=== PATIENT | female | born 1950 | race Caucasian/White ===

== ENCOUNTER 2022-03-06 11:25 | Day surgery (SDC) | payer BC, SELFPAY ==
[2022-03-06] VITALS (10 sets, daily range): BP systolic 134–174; BP diastolic 71–93; PULSE 80–97; RESP 18–22; TEMP 36.2–36.6; O2SAT 92–98; BMI 30.2
[2022-03-06] MEDS: SODIUM CHLORIDE 0.9 % (FLUSH) 10 ML SYRINGE IVF (12:07)
[2022-03-06] MEDS: LACTATED RINGERS 1000 ML 1,000 ML 100 ML IV ×2 (12:07→14:34)
[2022-03-06 12:11] LABS: Glucose, Point-of-Care* 165 mg/dl (60-115)
--- NOTE | 2022-03-06 12:36 | SUR.PREOP ---
pt daughter states she will be staying with pt dallin.
--- NOTE | 2022-03-06 12:37 | SUR.PREOP ---
TIME?OUT:?1234 PT/Constantine MORALEZ RN/Senthil CORTEZ MDA?VERIFICATION?OF?SURGICAL?SITE,?PROCEDURE,?AND?CONSENT OBTAINED?PRIOR?TO?INVASIVE?PROCEDURE.
[2022-03-06] MEDS: MIDAZOLAM HCL 1 MG/ML inj IVP (12:43)
[2022-03-06] MEDS: fentaNYL 100 MCG/2 ML inj IVP (12:43)
--- NOTE | 2022-03-06 13:14 | CRLHL7_ITS ---
For Patients: As a result of the Century Cures Act, medical imaging exams and procedure reports are released immediately into your electronic medical record. You may view this report before your referring provider. If you have questions, please contact your health care provider. INDICATION: Intra op TECHNIQUE: Intraoperative C-arm fluoroscopy. IMPRESSION: Intraoperative C-arm fluoroscopy was provided. Fluoroscopy time 107.3 seconds. 3 images were captured. Dictated by Brenton Shah MD @ 03/06/2022 4:11:49 PM (Electronically Signed)
--- NOTE | 2022-03-06 13:15 | P.NB_ITS ---
Nerve Block Nerve Block Time Seen by Provider: 12:30 Date Seen: 03/06/22 Type of block requested by surgeon for post-operative analgesia: axillary Side: left Time out performed: Yes Verification of patient name: Yes Verification of date of : Yes Site marking: site marked Name of person performing procedure: Mauri Continuous monitoring Was continuous monitoring of O2 sat, B/P, ekg monitor tech, recorded every 15 minutes?: Yes Procedure Checklist: sterile prep, needles and gloves Ultrasound guided. Images saved: Yes Medications given in 5ml increments after negative aspiration: Ropivicaine %: 0.5 mL: 30 Needle gauge: 22 Patient tolerated procedure well: Yes Additional comments: Needle noted adjacent to nerve
[2022-03-06] MEDS: CEFAZOLIN 2 GM INJ IVP (14:45)
--- NOTE | 2022-03-06 15:35 | P.ORPRC_ITS ---
Procedure Note Date of procedure: 03/06/22 Procedure: SURGEON: Yann Wills MD MICROFICHE DUPLICATOR: RON Redding PREOPERATIVE DIAGNOSIS: Angulated and displaced 2 part extra-articular left upper extremity distal radius fracture POSTOPERATIVE DIAGNOSIS: Angulated and displaced 2 part extra-articular left upper extremity distal radius fracture NAME OF OPERATION: Closed reduction percutaneous pinning ANESTHESIA: For for for block plus monitored anesthesia care ESTIMATED BLOOD LOSS: 0 mL COMPLICATIONS: None SPECIMENS: None DRAINS: None PREOPERATIVE ANTIBIOTICS: Ancef 1 g INDICATIONS: The patient is a 71-year-old female who slipped and fell landing on their upper extremity sustaining the above injury. Given the amount of angulation, reduction and pin fixation were recommended. The risks, benefits and expected outcomes were discussed in detail. These included but were not limited to: Infection, bleeding, injury to blood vessel or nerve, venous thromboembolism. All questions were answered to their satisfaction. Use of an preschool assistant teacher was necessary throughout the case for patient positioning and safety, maintenance of the reduction, pin site dressing and splint application. PROCEDURE: A supraclavicular block was placed by Anesthesia. The patient was placed supine on the operating room table. IV sedation was administered. The upper extremity was prepped and draped in the usual sterile fashion. The reduction was obtained with longitudinal traction and volar force on the distal fragment. The patient's skin is paper thin. While manipulating the fracture, several superficial skin tears were made. One over the dorsum of the forearm, 1 over the dorsum of the wrist and 1 over the dorsum of the hand. A K-wire was placed in the fracture site and used to lever the distal fragment distally. We exchanged this for the freer elevator. We were unable to fully hook the volar cortex. However, we were able to significantly improve the reduction. We placed a 0.062 in K-wire retrograde through the radial styloid across the fracture site engaging the ulnar cortex of the proximal fragment. Its placement was confirmed with the image intensifier. We placed a 2nd 0.062 in K-wire parallel to this just volar to the original pin. Finally we placed a 3rd 0.062 in K-wire antegrade through the radial cortex of the proximal fragment across the fracture site engaging the ulnar side of the distal fragment. This construct was imaged in multiple views and was felt to have an acceptable reduction with well placed pins. The pins were bent, cut off and were appropriately dressed. The skin tears were sealed with glue. A well-padded short-arm dorsovolar splint was applied. Sponge and needle counts were correct x2. The patient tolerated the procedure well. There were no apparent complications. They were carefully transferred to the hospital bed and taken to the stanesthesia care unit in satisfactory condition. PLAN: The patient will be discharged home. They will work on elevation of the hand and active range of motion of the fingers. They will follow up in the office next week to assess the pin sites with three views of the wrist out of the splint prior to being seen in preparation for cast immobilization.
--- NOTE | 2022-03-06 15:41 | W.ANESCHARGE ---
Anesthesia Charges Start Date/Time Anesthesia Start Date: 03/06/22 Anesthesia Start Time: 14:34 Stop Date/Time Anesthesia Stop Date: 03/06/22 Anesthesia Stop Time: 15:39 Summary Emergency: No
--- NOTE | 2022-03-06 15:46 | W.ANESCHARGE ---
Anesthesia Charges Start Date/Time Anesthesia Start Date: 03/06/22 Anesthesia Start Time: 14:34 Stop Date/Time Anesthesia Stop Date: 03/06/22 Anesthesia Stop Time: 15:39 Summary Emergency: No
== END 2022-03-06 16:23 | disposition home or self-care (01) ==
PROVIDERS: PCP Family Medicine; Visit Provider Orthopaedic Surgery
PROC: (CPT 25606; principal; 2022-03-06 12:15)
DX: S52.552A Other extraarticular fracture of lower end of left radius, initial encounter for closed fracture (principal)
CPT/HCPCS: 25606; 01820; 01830; 73100; 76000; 82947; J0690; J2250; J2704; J2795; J3010; J7120

== ENCOUNTER 2022-05-01 11:35 | Outpatient (CLI) | payer BC, SELFPAY ==
[2022-05-01 13:13] LABS: Creatinine Urine 131.6 mg/dL
[2022-05-01 13:14] LABS: Microalbumin Creatinine Ratio 50 mg/g (0-30); Microalbumin Urine 7 mg/dL
[2022-05-01 15:44] LABS: Albumin* 4.8 g/dL (3.3-5.0)
[2022-05-01 15:45] LABS: Chloride* 96 mmol/L (96-114); Potassium* 4.5 mmol/L (3.6-5.1); Sodium* 138 mmol/L (135-149)
[2022-05-01 15:47] LABS: Alkaline Phosphatase* 116 U/L (40-150); Aspartate Amino Transferase* 20 U/L (12-35); Bilirubin Total* 0.4 mg/dL (0.1-1.5); Blood Urea Nitrogen* 14 mg/dL (7-30); Carbon Dioxide* 30 mmol/L (20-32); Cholesterol* 144 mg/dL (90-199); Creatinine* 0.5 mg/dL (0.5-1.5); Estimated Glomerular Filt Rate 101 ml/min; Total Protein* 7.6 g/dL (6.0-8.3)
[2022-05-01 15:48] LABS: Alanine Aminotransferase* 20 U/L (4-35); Calcium* 9.7 mg/dL (8.4-10.6); Glucose* 206 mg/dL (60-115); Triglycerides* 150 mg/dL (40-149)
[2022-05-01 15:49] LABS: HDL Cholesterol* 57 mg/dL (>=50); LDL Cholesterol Calculated 57 mg/dL (<100)
== END 2022-05-01 11:36 | disposition home or self-care (01) ==
PROVIDERS: PCP Family Medicine; Visit Provider Family Medicine
DX: E11.69 Type 2 diabetes mellitus with other specified complication (principal); E66.9 Obesity, unspecified; E78.5 Hyperlipidemia, unspecified; J96.90 Respiratory failure, unspecified, unspecified whether with hypoxia or hypercapnia
CPT/HCPCS: 80053; 80061; 82043; 82570

== ENCOUNTER 2022-06-18 15:21 | Outpatient (CLI) | payer BC, SELFPAY | END 2022-06-18 15:22 | disposition home or self-care (01) | LOC: AMB 07-24 11:59 | PROVIDERS: PCP Family Medicine; Visit Provider Family Medicine | DX: S29.9XXA Unspecified injury of thorax, initial encounter (principal); W19.XXXA Unspecified fall, initial encounter; Y92.009 Unspecified place in unspecified non-institutional (private) residence as the place of occurrence of the external cause | CPT/HCPCS: A0425; A0427 ==

== ENCOUNTER 2022-06-18 15:54 | Inpatient (IN) | payer BC, SELFPAY ==
[2022-06-18 16:12] VITALS: BP 139/86; PULSE 119; RESP 20; TEMP 36.2; O2SAT 93; O2SAT 94; BMI 31.9
--- NOTE | 2022-06-18 16:53 | CRLHL7_ITS ---
For Patients: As a result of the Cures Act, medical imaging exams and procedure reports are released immediately into your electronic medical record. You may view this report before your referring provider. If you have questions, please contact your health care provider. INDICATION: Injury. TECHNIQUE: Pelvis and right hip 3 views. COMPARISON: None. FINDINGS: Radiopaque device projected over the proximal right femur on the 1st image. There is an acute minimally displaced fracture of the right femoral neck. The femoral head remains aligned with the acetabulum but is rotated. The sacroiliac joints are normal in appearance. Soft tissues are unremarkable. IMPRESSION: Acute minimally displaced fracture of the right femoral neck. Dictated by Sylwia Hampton MD @ 06/18/2022 5:59:02 PM (Electronically Signed)
[2022-06-18] MEDS: MORPHINE 4 MG/ML INJ IVP (18:21)
[2022-06-18 18:36] VITALS: PULSE 95; O2SAT 92
[2022-06-18 18:47] VITALS: BP 125/61; PULSE 93; RESP 18; O2SAT 92
[2022-06-18 18:49] LABS: Basophils Percent Auto 0.2 % (0.0-3.0); Eosinophils Percent Auto 0.4 % (0.0-7.0); Hematocrit 46.9 % (33.0-51.0); Immature Granulocytes Abs Auto 0.05 K/uL (0.00-0.30); Lymphocytes Percent Auto 10.5 % (20-44); Mean Corpuscular HGB Conc 32 gm/dL (32-36); Mean Corpuscular Hemoglobin 28 pg (26-34); Mean Corpuscular Volume 87 fL (80-100); Monocytes Percent Auto 7.1 % (0.0-11.0); Neutrophils Percent Auto 81.5 % (42.0-72.0); Platelet Count* 289 K/uL (140-440); RDW Coefficient of Variation % 14.1 % (11.5-15.5); Red Blood Count 5.38 m/uL (4.00-5.20); White Blood Count* 16.68 K/uL (4.50-11.00)
[2022-06-18 18:50] LABS: Slide Review Reflex No
[2022-06-18 19:08] LABS: INR 0.97 (0.91-1.10); Prothrombin Time 13.5 Seconds
[2022-06-18 19:09] LABS: Chloride* 101 mmol/L (96-114); Partial Thromboplastin Time* 28 Seconds (23-33); Potassium* 4.6 mmol/L (3.6-5.1); Sodium* 140 mmol/L (135-149)
--- NOTE | 2022-06-18 19:09 | ED.GENADULT ---
HPI - General Adult General Date Seen: 06/18/22 Chief complaint: Fall/Minor Trauma Stated complaint: Fall Time Seen by Provider: 06/18/22 16:12 Source: patient History of Present Illness HPI narrative: Patient is a 71-year-old woman who had a fall earlier today at home. She has not been able to bear weight on her right hip since then. Says she also injured her left wrist in the process, but she does not think that anything is really wrong with the left wrist. She has a prior fracture there and has had surgery, but she does not want x-rays of her left wrist. She has a bruise on her left thigh as well, but is not having difficulty bearing weight on the left leg. She denies hitting her head, denies loss of consciousness, headache, neck pain. Denies blood thinners. She has COPD, she is oxygen dependent, got tangled up in her oxygen tubing which caused the fall. She is on 2 L chronically. She denies unusual shortness of breath, chest pain, lightheadedness or fainting. Related Data Home Medications Medication Instructions Recorded Confirmed albuterol sulfate 90 mcg/actuation 2 inhalation PRN 02/13/22 05/08/22 aerosol inhaler aspirin 81 mg tablet,delayed mg PO DAILY 02/13/22 05/08/22 release budesonide-formoterol HFA 160 2 inhalation BID 02/13/22 05/08/22 mcg-4.5 mcg/actuation aerosol inhaler buspirone 10 mg tablet 10 mg PO BID 02/13/22 05/08/22 diltiazem HCl 240 mg mg PO DAILY 02/13/22 05/08/22 capsule,extended release 24 hr guaifenesin 600 mg tablet, 600 mg PO BID 02/13/22 05/08/22 extended release 12 hr metoprolol succinate 100 mg mg PO DAILY 02/13/22 05/08/22 tablet,extended release 24 hr trazodone 50 mg tablet mg PO .Bedtime as needed PRN 02/13/22 05/08/22 umeclidinium 62.5 mcg-vilanterol 1 inh inhalation Q24H 02/13/22 05/08/22 25 mcg/actuation powdr for inhalation venlafaxine 150 mg 150 mg PO DAILY 02/13/22 05/08/22 capsule,extended release 24 hr Previous Rx's Medication Instructions Recorded oxycodone-acetaminophen 5 mg-325 1 tab PO Q4-6H PRN pain #10 tabs 03/15/22 mg tablet (Percocet) lorazepam 0.5 mg tablet 0.25 mg PO BID PRN anxiety #30 tabs 04/26/22 rosuvastatin 20 mg tablet 20 mg PO DAILY #90 tabs 05/08/22 sitagliptin phosphate 100 mg tablet 100 mg PO DAILY #90 tabs 05/08/22 Allergies Allergy/AdvReac Type Severity Reaction Status Date / Time acetylcysteine Allergy Unknown respiratory Verified 06/18/22 16:20 distress amlodipine Allergy Unknown Anaphylaxis Verified 06/18/22 16:20 ipratropium Allergy Unknown facial Verified 06/18/22 16:20 swelling tiotropium Allergy Unknown Verified 06/18/22 16:20 metformin AdvReac Severe Diarrhea Verified 06/18/22 16:20 Review of Systems Status of ROS: Reports: 10 or more systems reviewed and unremarkable except as noted in History and below [facility] Medical History Albuminuria (~05/08/22) Anxiety Chronic respiratory failure with hypoxia, on home oxygen therapy COPD, severe Counseling regarding advanced directives (05/09/18) Depression Dyslipidemia Hypertension Hypoxia Lesion of vertebra Obstructive sleep apnea syndrome Physician orders for life-sustaining treatment (POLST) form indicates patient wish for [id number]-[id number] status (05/09/18) Polycythemia vera Sinus tachycardia Type 2 diabetes mellitus Surgical History H/O left wrist surgery (03/06/22) History of decompression of ulnar nerve (03/13/07) History of melanoma excision (2003) History of tubal ligation Family History Mother Coronary artery disease Paternal Grandmother Coronary artery disease Paternal Grandfather Stroke Other High blood pressure Social History Narrative: , retired nurse aid, 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 In general, an alert, nontoxic woman. Head: Normocephalic, atraumatic. Eyes: Pupils are equal reactive. Extraocular movements are full. Conjunctivae are normal. ENT: Mucous membranes are moist. Nose is somewhat cyanotic appearing. Neck: Supple without lymphadenopathy. No midline posterior tenderness. Heart: Regular rate and rhythm. No murmur or rub. Lungs: Lungs are clear. No significant wheezing, no increased work of breathing. Abdomen: Soft and nontender. No organomegaly. Extremities: She has multiple bruises on her extremities. There is a bruise on her left wrist which she says is old. She does not have any bony tenderness or swelling. Moves the wrist freely. On the left thigh there is a large bruise but she does not complain of pain with moving the left leg at all. On the right, she does not have any tenderness or pain of the right knee or ankle. She has pain with movement of the right hip. Distal CMS is intact. Neurologic: Patient is alert and oriented to person and place. Speech is fluent. Face is symmetric. Moves all extremities equally. Affect: Normal. Skin: Warm and dry. Well perfused. Const: Vital Signs, click to edit/add: Vital Signs - 24 hr 06/18/22 16:12 06/18/22 18:36 06/18/22 16:12 Temperature 97.2 F L Pulse Rate [Right Pulse Oximeter] 119 H 95 Respiratory Rate 20 Blood Pressure [Ri ght Upper Arm] 139/86 Pulse Oximetry 94 92 93 Oxygen Delivery Me thod Nasal Cannula Nasal Cannula Nasal Cannula Oxygen Flow Rate 2 06/18/22 18:47 Temperature Pulse Rate [Right Pulse Oximeter] 93 Respiratory Rate 18 Blood Pressure [Ri ght Upper Arm] 125/61 Pulse Oximetry 92 Oxygen Delivery Me thod Nasal Cannula Oxygen Flow Rate Course Course Hospital Course: Following initial evaluation, patient had x-rays of the right hip which do confirm by my review a femoral neck fracture. Final radiology report is the same. I have discussed this briefly with Orthopedics and they will follow tomorrow. In the meantime, an IV was placed, she was given morphine for pain control and labs were drawn preoperatively. She had an EKG which by my review showed a normal sinus rhythm, first-degree AV block with a ventricular rate 96 beats per minute. No acute ST segment changes. She had a white blood cell count of 16.7, hemoglobin of 15. Basic metabolic panel was normal, COVID was negative. She had no further complaints while in the emergency department. She remained on her standard 2 L of oxygen, had no respiratory complaints. O2 stats are in the low to mid 90s. Tachycardic on arrival but this improved with pain control. Elevated white blood cell count is of uncertain significance, possible demargination given the absence of any symptoms to suggest an infectious cause. Vital Signs Vital signs: Initial Vital Signs Temperature 97.2 F L 06/18/22 16:12 Temperature Source Temporal Artery Scan 06/18/22 16:12 Pulse Rate 119 H 06/18/22 16:12 Respiratory Rate 20 06/18/22 16:12 Blood Pressure 139/86 06/18/22 16:12 Blood Pressure Mean 103 06/18/22 16:12 Blood Pressure Position Sitting 06/18/22 16:12 Pulse Oximetry 94 06/18/22 16:12 Oxygen Delivery Method 06/18/22 16:12 Oxygen Flow Rate 2 06/18/22 16:12 Vital Signs Temperature 97.2 F L 06/18/22 16:12 Pulse Rate 119 H 06/18/22 16:12 Respiratory Rate 20 06/18/22 16:12 Blood Pressure 139/86 06/18/22 16:12 Pulse Oximetry 94 06/18/22 16:12 Oxygen Delivery Method 06/18/22 16:12 Oxygen Flow Rate 2 06/18/22 16:12 Temperature 97.2 F L 06/18/22 16:12 Pulse Rate 93 06/18/22 18:47 Respiratory Rate 18 06/18/22 18:47 Blood Pressure 125/61 06/18/22 18:47 Pulse Oximetry 92 06/18/22 18:47 Oxygen Delivery Method 06/18/22 18:47 Oxygen Flow Rate 2 06/18/22 16:12 Medical Decision Making Lab Data Labs: Lab Results 06/18/22 06/18/22 06/18/22 Range/Units 18:21 18:43 18:43 WBC 16.68 H (4.50-11.00) K/uL RBC 5.38 H (4.00-5.20) m/uL Hgb 15.0 (12.0-16.0) gm/dL Hct 46.9 (33.0-51.0) % MCV 87 (80-100) fL MCH 28 (26-34) pg MCHC 32 (32-36) gm/dL RDW Coeff of Vance 14.1 (11.5-15.5) % Plt Count 289 (140-440) K/uL Neut % (Auto) 81.5 H (42.0-72.0) % Lymph % (Auto) 10.5 L (20-44) % Morehouse % (Auto) 7.1 (0.0-11.0) % Eos % (Auto) 0.4 (0.0-7.0) % Baso % (Auto) 0.2 (0.0-3.0) % Neut # (Auto) 13.60 H (1.7-7.0) K/uL Lymph # (Auto) 1.80 (0.90-2.90) K/uL Morehouse # (Auto) 1.20 H (0.00-0.90) K/UL Eos # (Auto) 0.10 (0.00-0.50) K/uL Baso # (Auto) 0.00 (0.00-0.30) K/uL Abs Immat Gran (auto) 0.05 (0.00-0.30) K/uL INR 0.97 (0.91-1.10) APTT 28 (23-33) Seconds Sodium (135-149) mmol/L Potassium (3.6-5.1) mmol/L Chloride (96-114) mmol/L Carbon Dioxide (20-32) mmol/L BUN (7-30) mg/dL Creatinine (0.5-1.5) mg/dL Estimated Creat Clear Estimated GFR ml/min Glucose (60-115) mg/dL Calcium (8.4-10.6) mg/dL SARS-CoV-2 (PCR) Negative SARS-CoV-2 (Negative) 06/18/22 Range/Units 18:43 WBC (4.50-11.00) K/uL RBC (4.00-5.20) m/uL Hgb (12.0-16.0) gm/dL Hct (33.0-51.0) % MCV (80-100) fL MCH (26-34) pg MCHC (32-36) gm/dL RDW Coeff of Vance (11.5-15.5) % Plt Count (140-440) K/uL Neut % (Auto) (42.0-72.0) % Lymph % (Auto) (20-44) % Morehouse % (Auto) (0.0-11.0) % Eos % (Auto) (0.0-7.0) % Baso % (Auto) (0.0-3.0) % Neut # (Auto) (1.7-7.0) K/uL Lymph # (Auto) (0.90-2.90) K/uL Morehouse # (Auto) (0.00-0.90) K/UL Eos # (Auto) (0.00-0.50) K/uL Baso # (Auto) (0.00-0.30) K/uL Abs Immat Gran (auto) (0.00-0.30) K/uL INR (0.91-1.10) APTT (23-33) Seconds Sodium 140 (135-149) mmol/L Potassium 4.6 (3.6-5.1) mmol/L Chloride 101 (96-114) mmol/L Carbon Dioxide 30 (20-32) mmol/L BUN 10 (7-30) mg/dL Creatinine 0.5 (0.5-1.5) mg/dL Estimated Creat Clear 45.85 Estimated GFR 101 ml/min Glucose 144 H (60-115) mg/dL Calcium 8.9 (8.4-10.6) mg/dL SARS-CoV-2 (PCR) (Negative) Discharge Plan Discharge Prescriptions: No Action rosuvastatin 20 mg tablet 20 mg PO DAILY Qty: 90 4RF sitagliptin phosphate 100 mg tablet 100 mg PO DAILY Qty: 90 4RF budesonide-formoterol 160-4.5 mcg/actuation HFA aerosol inhaler 2 inhalation BID Rx Instructions: BRAND NAME ONLY aspirin 81 mg tablet,delayed release (/EC) PO DAILY buspirone 10 mg tablet 10 mg PO BID venlafaxine 150 mg capsule,extended release 24hr 150 mg PO DAILY diltiazem HCl 240 mg capsule,extended release 24hr PO DAILY guaifenesin 600 mg tablet extended release 12hr 600 mg PO BID albuterol sulfate 90 mcg/actuation HFA aerosol inhaler 2 inhalation PRN metoprolol succinate 100 mg tablet extended release 24 hr PO DAILY trazodone 50 mg tablet PO .Bedtime as needed PRN umeclidinium-vilanterol 62.5-25 mcg/actuation blister with device 1 inh inhalation Q24H oxycodone-acetaminophen [Percocet] 5-325 mg tablet 1 tab PO Q4-6H PRN (Reason: pain) Qty: 10 0RF lorazepam 0.5 mg tablet 0.25 mg PO BID PRN (Reason: anxiety) Qty: 30 0RF Rx Instructions: Please take half a tab BID PRN as needed for severe anxiety ONLY. Follow Up/Referrals: Beatrice Cohen MD [Primary Care Provider] -
[2022-06-18 19:12] LABS: Blood Urea Nitrogen* 10 mg/dL (7-30); Carbon Dioxide* 30 mmol/L (20-32); Creatinine* 0.5 mg/dL (0.5-1.5); Est. Creatinine Clearance* 45.85; Estimated Glomerular Filt Rate 101 ml/min
[2022-06-18 19:13] LABS: Calcium* 8.9 mg/dL (8.4-10.6); Glucose* 144 mg/dL (60-115)
[2022-06-18 19:13] LABS: SARS PCR* Negative SARS-CoV-2 (Negative)
--- NOTE | 2022-06-18 21:55 | PM.IMHP1 ---
Hospitalist- H&P: HPI History of Present Illness Date Seen: 06/18/22 Chief complaint: Fall Narrative: Vanessa Martinez is a 71 year old female who presented to the ED after a mechanical fall at home (tripped over her oxygen tubing). Specifically denies any preceding dizziness, lightheadedness, or palpitations. She had immediate right-sided hip pain after the fall, which prompted her ER visit. ER Course and Findings: - Acute minimally displaced fracture of right femoral neck - Incidental leukocytosis with WBC of 16 (chronic condition, per chart review) - Reassuring vital signs Dr. Loco, ER physician, discussed the case with Dr. Mayers of Orthopedic surgery, and patient is admitted to the hospital to await further fracture management. Vanessa has no concerns for the hospitalist team. She is a high risk surgical and anesthesia candidate, given her oxygen dependent COPD and poor pulmonary reserve. She had a LEFT distal radius fracture this summer, underwent closed reduction and percutaneous pinning. Other surgical and medical history noted below. Most recent A1c for her emu-paajesm-wkvyfzjma DM2 was 8.6. Vanessa lives alone locally, thrice . 4 adult children. Daughter Rajani ([phone]) is POA and medial decision maker, if needed. Requests DNR/DNI status. Quit smoking 2013. Rare ETOH use, no history of withdrawal. Has not had any COVID vaccines. Previously worked as a nurse's aide. Review of Systems Status of ROS: Reports: 10 or more systems reviewed and unremarkable except as noted in History and below Narrative: Only complaint is R hip pain [facility] Medical History Albuminuria (~05/08/22) Anxiety Chronic respiratory failure with hypoxia, on home oxygen therapy COPD, severe Counseling regarding advanced directives (05/09/18) Depression Dyslipidemia Hypertension Hypoxia Lesion of vertebra Obstructive sleep apnea syndrome Physician orders for life-sustaining treatment (POLST) form indicates patient wish for fg-wbn-rpeebcfdlnb status (05/09/18) Polycythemia vera Sinus tachycardia Type 2 diabetes mellitus Surgical History H/O left wrist surgery (03/06/22) History of decompression of ulnar nerve (03/13/07) History of melanoma excision (2003) History of tubal ligation Family History Mother Coronary artery disease Paternal Grandmother Coronary artery disease Paternal Grandfather Stroke Other High blood pressure Social History Narrative: , retired nurse aid, 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[facility], 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 Does not drink alcohol Does not exercise Ex-smoker- quit 2013, 60 pack years Smoking Status: Former smoker Second hand tobacco smoke exposure: No How often do you have a drink containing alcohol: never AUDIT-C Alcohol total score: 0 Non-prescribed substance use: denies use Caffeine: Yes Are you now , , , , never or living with a partner: Social isolation score (0-1 are the most socially isolated patients): 0 Meds Home Medications and Allergies Home Medications Medication Instructions Recorded Confirmed Type albuterol sulfate 90 mcg/actuation 2 inh inhalation Q4H PRN 02/13/22 06/18/22 History aerosol inhaler aspirin 81 mg tablet,delayed 81 mg PO DAILY 02/13/22 06/18/22 History release budesonide-formoterol HFA 160 2 puff inhalation BID 02/13/22 06/18/22 History mcg-4.5 mcg/actuation aerosol inhaler buspirone 10 mg tablet 10 mg PO BID 02/13/22 06/18/22 History diltiazem HCl 240 mg 240 mg PO DAILY 02/13/22 06/18/22 History capsule,extended release 24 hr metoprolol succinate 100 mg 100 mg PO DAILY 02/13/22 06/18/22 History tablet,extended release 24 hr trazodone 50 mg tablet 50 mg PO .Bedtime as needed PRN 02/13/22 06/18/22 History umeclidinium 62.5 mcg-vilanterol 1 inh inhalation Q24H 02/13/22 06/18/22 History 25 mcg/actuation powdr for inhalation venlafaxine 150 mg 150 mg PO DAILY 02/13/22 06/18/22 History capsule,extended release 24 hr Allergies Allergy/AdvReac Type Severity Reaction Status Date / Time acetylcysteine Allergy Unknown respiratory Verified 06/18/22 16:20 distress amlodipine Allergy Unknown Anaphylaxis Verified 06/18/22 16:20 ipratropium Allergy Unknown facial Verified 06/18/22 16:20 swelling tiotropium Allergy Unknown Verified 06/18/22 16:20 metformin AdvReac Severe Diarrhea Verified 06/18/22 16:20 Exam Narrative: Exam Narrative: GEN: Alert and answering questions appropriately HEENT: Normal external ears, EOMIs bilaterally CV: RRR, No concerning murmurs, rubs, or gallops R: Wearing supplemental oxygen, air movement decreased bilateral bases without any concerning wheezes or rhonchi Ext: wwp, no concerning edema Skin: Scattered bruising of all extremities with thin skin noted, no other concerning lesions noted on exposed skin Neuro: Nonfocal, no resting tremor, normal peripheral pulses Psych: Loquacious Const: Vital Signs, click to edit/add: Vital Signs - 24 hr 06/18/22 16:12 06/18/22 18:36 06/18/22 16:12 Temperature 97.2 F L Pulse Rate [Right Pulse Oximeter] 119 H 95 Respiratory Rate 20 Blood Pressure [Ri ght Upper Arm] 139/86 Pulse Oximetry 94 92 93 Oxygen Delivery Me thod Nasal Cannula Nasal Cannula Nasal Cannula Oxygen Flow Rate 2 06/18/22 18:47 Temperature Pulse Rate [Right Pulse Oximeter] 93 Respiratory Rate 18 Blood Pressure [Ri ght Upper Arm] 125/61 Pulse Oximetry 92 Oxygen Delivery Me thod Nasal Cannula Oxygen Flow Rate Hospitalist - H&P: Result Labs Labs: Short CBC 06/18/22 Range/Units 18:43 WBC 16.68 H (4.50-11.00) K/uL Hgb 15.0 (12.0-16.0) gm/dL Hct 46.9 (33.0-51.0) % Plt Count 289 (140-440) K/uL BMP 06/18/22 18:43 Sodium 140 Potassium 4.6 Chloride 101 Carbon Dioxide 30 BUN 10 Creatinine 0.5 Glucose 144 H Calcium 8.9 INDICATION: Injury. TECHNIQUE: Pelvis and right hip 3 views. COMPARISON: None. FINDINGS: Radiopaque device projected over the proximal right femur on the 1st image. There is an acute minimally displaced fracture of the right femoral neck. The femoral head remains aligned with the acetabulum but is rotated. The sacroiliac joints are normal in appearance. Soft tissues are unremarkable. IMPRESSION: Acute minimally displaced fracture of the right femoral neck. Dictated by Sylwia Hampton MD @ 06/18/2022 5:59:02 PM Assessment and Plan Assessment and plan (1) Fracture of femoral neck, right: Status: Acute Assessment and Plan: - orthopedic surgery has been consulted to discuss management. - High risk surgical candidate given COPD and chronic oxygen dependence, poor pulmonary reserve. If operative management is favored, recommend spinal anesthesia given chronic lung disease (2) Type 2 diabetes mellitus: Status: Acute Assessment and Plan: - suboptimal control with outpatient A1c of 8.6. Accu-Cheks and sliding scale insulin, in addition to home medications (3) COPD, severe: Status: Acute (4) Leukocytosis: Problem comment: Chronic w/ neutrophilia thought due to chronic steroid use. Abstracted [facility] record. Status: Acute Assessment and Plan: - chronic, will obtain UA to ensure no nidus of infection Plan - per above - NPO after midnight - continue home medications for chronic conditions
--- NOTE | 2022-06-18 22:06 | W.PC.EDHO ---
Primary Language: Preferred Language: Orientation Status: [] Alert & Oriented [] Slight Confusion [] Known Dx Dementia Transfers By: [] Assist of 1 [] Assist of 2 [] Lift Active Medications Discontinued Medications Generic Name Dose Route Start Last Admin Trade Name Alicia PRN Reason Stop Dose Admin Morphine Sulfate 4 mg 06/18/22 17:56 06/18/22 18:21 Morphine 4 Mg/Ml Inj IVP 06/18/22 17:57 4 mg ONCE ONE Administration Description of Symptoms ED Triage Present Problem patient fell at home around 0230 due to O2 tubing Description wrapped around the toe. patient is c/o right elbow hurting, left wrist is tender and had a previous surgery with pins--noted to be red and slightly swollen has ice to area, and right hip hurts to bear weight. EMS has L forearm #20 jelco as a saline lock placed. given ativan 1mg for anxiety which has helped. [id number]. hx of COPD, tachycardia, and wears O2 at 2 liters at home all day long. ED Triage Date of Onset of 06/18/22 Symptoms Morrow Coma Scale Mary coma scale total score 15 Pain Pain Description [Right Hip] Acute Pain Intensity [Right Hip] 6 Pain Intensity [Right Hip] 2 Pain Intensity 6 Pain Intensity 4 Pain Intensity 7 Pain Intensity 6 Pain Intensity 5 Pain Scale Used [Right Hip] Numeric (1 - 10) Pain Scale Used Numeric (1 - 10) Oxygen Administration Pulse Oximetry 92 Pulse Oximetry 92 Pulse Oximetry 93 Pulse Oximetry 94 Oxygen Delivery Method Nasal Cannula Oxygen Delivery Method Nasal Cannula Oxygen Delivery Method Nasal Cannula Oxygen Delivery Method Nasal Cannula Oxygen Flow Rate 2 Cardiac Monitoring EKG Method 12 Lead
[2022-06-18] MEDS: MORPHINE 2 MG/ML inj IVP (22:50)
[2022-06-19] VITALS (23 sets, daily range): BP systolic 111–160; BP diastolic 50–93; PULSE 78–110; RESP 16–22; TEMP 36.4–37.3; O2SAT 88–97; BMI 29.5
[2022-06-19] MEDS: TRAZODONE HCL 50 MG TABLET PO (01:26)
[2022-06-19] MEDS: MORPHINE 4 MG/ML INJ IVP ×3 (04:04→09:39)
[2022-06-19] MEDS: LORazepam 0.5 MG TABLET 0.25 MG PO (04:05)
--- NOTE | 2022-06-19 05:46 | PC.NURSE ---
Shift note: Patient brought to the unit from ED on a bed accompanied by ED nurse. Conscious, alert and oriented with periodic confusion. V/s WNL. Reported for pain of 6 on arrival but received Morphine at the ED prior to the arrival. Ensured bedrest and NPO for possible surgery today. Morphine and Lorazepam given to manage pain and anxiety.
[2022-06-19 07:03] LABS: Appearance Urine Clear (Clear); Bilirubin Urine Negative (Negative); Blood Urine Negative (Negative); Color Urine Yellow (Yellow); Glucose Urine Negative (Negative); Ketones Urine Negative (Negative); Leukocyte Esterase Urine Negative (Negative); Nitrite Urine Negative (Negative); Protein Urine 1+ (Negative); Specific Gravity Urine >= 1.030 (1.000-1.030); Urobilinogen Urine 0.2 (0.2-1.0); pH Urine 5.5 (5.0-8.5)
[2022-06-19 07:24] LABS: RBC Urine 0-2 (0-2); Squamous Epithelial Cell Urine Few (None-Few); WBC Urine 0-2 (0-5)
[2022-06-19 07:25] LABS: Mucus Urine Moderate
[2022-06-19] MEDS: METOPROLOL SUCCINATE (XL) 100 MG TAB PO (09:37)
[2022-06-19] MEDS: VENLAFAXINE ER 75 MG CAPSULE 150 MG PO (09:38)
[2022-06-19] MEDS: BUSPIRONE 10 MG TABLET PO ×2 (09:38→21:44)
[2022-06-19] MEDS: dilTIAZem 240 MG CAP (CD) PO (09:38)
[2022-06-19] MEDS: ROSUVASTATIN CALCIUM 10 MG TABLET 20 MG PO (09:39)
[2022-06-19] MEDS: SODIUM CHLORIDE 0.9 % (FLUSH) 10 ML SYRINGE 5 ML IVF (09:40)
[2022-06-19] MEDS: 0.9 % SODIUM CHLORIDE 1000 ml 1,000 ML 125 ML IV (09:41)
--- NOTE | 2022-06-19 10:15 | CRLHL7_ITS ---
For Patients: As a result of the Century Cures Act, medical imaging exams and procedure reports are released immediately into your electronic medical record. You may view this report before your referring provider. If you have questions, please contact your health care provider. Indication: Injury and pain Technique: Left wrist 3 view Comparison: 04/25/2022 Findings: Percutaneous fixation hardware has been removed from the distal radial fracture deformity. The distal radial fracture is well healed. Neutral alignment of the distal radial articular surface is present. No acute fracture is noted. The ulnar styloid is intact. Degenerative joint disease at the radial aspect of the wrist. Carpal alignment normal. No carpal fracture. Impression: No sign of acute injury in the left wrist. Dictated by Marítn Rodriguez MD @ 06/19/2022 11:05:34 AM (Electronically Signed)
[2022-06-19] MEDS: Budesonide-Formoterol 160-4.5 mcg/actuation HFA aerosol inhaler 2 EACH IH (10:34)
--- NOTE | 2022-06-19 11:44 | PC.SOCIAL ---
Discharge planning- met with pt and pt's daughter (Rajani Mata [phone]) in pt's room. Discussed discharge planning. Pt would like to go home with her daughter for recovery. Daughter states that she would prefer that if it is medically safe that pt goes home for recovery. Daughter states that she can assist pt during recovery. Daughter would like to discuss further with surgery team and see how PT goes after surgery. Informed daughter that social work will continue to follow up to ensure that there is a safe discharge plan in place. Social work will follow up as needed.
--- NOTE | 2022-06-19 12:14 | P.IMPN_ITS ---
Progress Note: A&P Assessment and plan (1) Fracture of femoral neck, right: Status: Acute Assessment and Plan: - appreciate input from Orthopedic surgery and anesthesia; surgical repair planned for today - patient is high risk surgical candidate given oxygen dependent COPD (see H&P) (2) Type 2 diabetes mellitus: Status: Acute Assessment and Plan: - accuchecks and SSI (3) COPD, severe: Status: Acute (4) Leukocytosis: Problem details: Chronic w/ neutrophilia thought due to chronic steroid use. Abstracted [place] record. Status: Acute Plan - per above - hospitalist team will continue to follow patient postoperatively Subjective Date Seen: 06/19/22 Interval history: No acute events overnight. Hip pain managed with medications. Vanessa is noting more pain in L wrist this morning, requesting imaging. Exam Narrative: Exam Narrative: GEN: Alert and laying comfortably in bed, 3-4 word dyspnea, wearing supplemental oxygen HEENT: Normal external ears, EOMIs bilaterally CV: RRR, No concerning murmurs, rubs, or gallops R: Intermittent tachypnea, decreased breath sounds throughout, no wheezing or rales Ext: wwp, no concerning edema Skin: Scattered bruising on 4 extremities, no other concerning skin findings Neuro: No focal deficits, no resting tremor Const: Vital Signs, click to edit/add: Vital Signs - 24 hr 06/18/22 16:12 06/18/22 18:36 06/18/22 16:12 Temperature 97.2 F L Pulse Rate [Right Pulse Oximeter] 119 H 95 Respiratory Rate 20 Blood Pressure [Le ft Arm] Blood Pressure [Ri ght Upper Arm] 139/86 Pulse Oximetry 94 92 93 Oxygen Delivery Me thod Nasal Cannula Nasal Cannula Nasal Cannula Oxygen Flow Rate 2 06/18/22 18:47 06/19/22 00:06 06/19/22 00:34 Temperature 98.3 F Pulse Rate [Right Pulse Oximeter] 93 101 H Respiratory Rate 18 20 20 Blood Pressure [Le ft Arm] Blood Pressure [Ri ght Upper Arm] 125/61 Pulse Oximetry 92 90 90 Oxygen Delivery Me thod Nasal Cannula Nasal Cannula Nasal Cannula Oxygen Flow Rate 2 06/19/22 03:08 06/19/22 03:08 06/19/22 03:08 Temperature 99.2 F 99.2 F Pulse Rate [Right Pulse Oximeter] Respiratory Rate 20 20 20 Blood Pressure [Le ft Arm] 134/71 Blood Pressure [Ri ght Upper Arm] Pulse Oximetry 91 91 91 Oxygen Delivery Me thod Nasal Cannula Nasal Cannula Nasal Cannula Oxygen Flow Rate 2 2 2 06/19/22 03:09 06/19/22 07:00 06/19/22 07:09 Temperature 99.2 F 98.0 F Pulse Rate [Right Pulse Oximeter] 110 H Respiratory Rate 20 22 Blood Pressure [Le ft Arm] 134/71 160/93 H Blood Pressure [Ri ght Upper Arm] Pulse Oximetry 91 94 94 Oxygen Delivery Me thod Nasal Cannula Nasal Cannula Nasal Cannula Oxygen Flow Rate 2 2 2 Labs Labs: Laboratory Results - last 24 hr 06/18/22 06/18/22 06/18/22 18:21 18:43 18:43 WBC 16.68 H RBC 5.38 H Hgb 15.0 Hct 46.9 MCV 87 MCH 28 MCHC 32 RDW Coeff of Vance 14.1 Plt Count 289 Neut % (Auto) 81.5 H Lymph % (Auto) 10.5 L [place] % (Auto) 7.1 Eos % (Auto) 0.4 Baso % (Auto) 0.2 Neut # (Auto) 13.60 H Lymph # (Auto) 1.80 [place] # (Auto) 1.20 H Eos # (Auto) 0.10 Baso # (Auto) 0.00 Abs Immat Gran (auto) 0.05 INR 0.97 APTT 28 Sodium Potassium Chloride Carbon Dioxide BUN Creatinine Estimated Creat Clear Estimated GFR Glucose Calcium Urine Color Urine Appearance Urine pH Ur Specific [place] Urine Protein Urine Glucose (UA) Urine Ketones Urine Blood Urine Nitrite Urine Bilirubin Urine Urobilinogen Ur Leukocyte Esterase Urine RBC Urine WBC Ur Squamous Epith Cells Urine Bacteria Urine Mucus SARS-CoV-2 (PCR) Negative SARS-CoV-2 06/18/22 06/19/22 18:43 06:30 WBC RBC Hgb Hct MCV MCH MCHC RDW Coeff of Vance Plt Count Neut % (Auto) Lymph % (Auto) [place] % (Auto) Eos % (Auto) Baso % (Auto) Neut # (Auto) Lymph # (Auto) [place] # (Auto) Eos # (Auto) Baso # (Auto) Abs Immat Gran (auto) INR APTT Sodium 140 Potassium 4.6 Chloride 101 Carbon Dioxide 30 BUN 10 Creatinine 0.5 Estimated Creat Clear 45.85 Estimated GFR 101 Glucose 144 H Calcium 8.9 Urine Color Yellow Urine Appearance Clear Urine pH 5.5 Ur Specific [place] >= 1.030 Urine Protein 1+ A Urine Glucose (UA) Negative Urine Ketones Negative Urine Blood Negative Urine Nitrite Negative Urine Bilirubin Negative Urine Urobilinogen 0.2 Ur Leukocyte Esterase Negative Urine RBC 0-2 Urine WBC 0-2 Ur Squamous Epith Cells Few Urine Bacteria None Urine Mucus Moderate A SARS-CoV-2 (PCR)
[2022-06-19] MEDS: CEFAZOLIN 2 GM in 0.9 % SODIUM CHLORIDE Mini-bag 100 ML IVPB ×2 (13:34→21:43)
--- NOTE | 2022-06-19 13:47 | CRLHL7_ITS ---
For Patients: As a result of the Cures Act, medical imaging exams and procedure reports are released immediately into your electronic medical record. You may view this report before your referring provider. If you have questions, please contact your health care provider. Indication: Hip fracture reduction and fixation Technique: Two fluoroscopic images of the right hip. Fluoroscopic time 119.1 seconds. IMPRESSION: Fluoroscopic guidance for open reduction internal fixation of femoral neck fracture. Dictated by Martín Rodriguez MD @ 06/20/2022 8:59:19 AM (Electronically Signed)
--- NOTE | 2022-06-19 14:02 | PC.NURSE ---
End of Shift Note: Patient went to surgery around 1330 for her fractured right hip. Patient was A & O as she went into surgery. Did try and void on the bed aleman before she left but did not have any luck. Received her home medications early this morning with a small sip of juice. Received morphine for her pain. Awaiting her return from surgery.
--- NOTE | 2022-06-19 14:13 | P.NB_ITS ---
Nerve Block Nerve Block Date Seen: 06/19/22 Type of block requested by surgeon for post-operative analgesia: SHERON/LFCN Side: right Time out performed: Yes Verification of patient name: Yes Verification of date of : Yes Site marking: site marked Name of person performing procedure: Mauri Assistants, if any: Elise Continuous monitoring Was continuous monitoring of O2 sat, B/P, color television console monitor, recorded every 15 minutes?: Yes Procedure Checklist: sterile prep, needles and gloves Ultrasound guided. Images saved: Yes Medications given in 5ml increments after negative aspiration: Ropivicaine %: 0.5 mL: 30 Needle gauge: 20 Decadron (mg): 10 Precedex (mcg): 25 Patient tolerated procedure well: Yes Additional comments: Needle noted below psoas tendon needle noted adjacent to LFCN Block Charges Block Charge (with Pro Fee): Other Periph Nerve Block Use of Ultrasound Machine for Block: Yes- US Guidance/pain block
--- NOTE | 2022-06-19 14:49 | W.ANESCHARGE ---
Anesthesia Charges Start Date/Time Anesthesia Start Date: 06/19/22 Anesthesia Start Time: 13:15 Stop Date/Time Anesthesia Stop Date: 06/19/22 Anesthesia Stop Time: 14:50 Summary Emergency: Yes
--- NOTE | 2022-06-19 14:54 | W.ANESCHARGE ---
Anesthesia Charges Start Date/Time Anesthesia Start Date: 06/19/22 Anesthesia Start Time: 13:15 Stop Date/Time Anesthesia Stop Date: 06/19/22 Anesthesia Stop Time: 14:50 Summary Emergency: Yes
--- NOTE | 2022-06-19 14:54 | PM.ORCN ---
History of Present Illness HPI Date Seen: 06/19/22 Requesting physician: Sudha Enriquez Chief complaint: Fall Narrative: Dr. Enriquez has requested orthopedic consultation for right hip fracture. Vanessa is well known. She fell, sustaining a right hip injury. She is a community ambulator, without assist. She describes right hip and left wrist pain. I treated her this summer for a displaced left wrist fracture. This healed uneventfully. She has never injured her right hip or had surgery on it previously. Review of Systems Narrative: The patient denies: Fever, night sweats, shaking chills, nausea, vomiting, diarrhea, chest pain, chest pressure, shortness of breath, no rash, no change in hearing or vision, no issues with bleeding or clotting [facility] Medical History Albuminuria (~05/08/22) Anxiety Chronic respiratory failure with hypoxia, on home oxygen therapy COPD, severe Counseling regarding advanced directives (05/09/18) Depression Dyslipidemia Hypertension Hypoxia Lesion of vertebra Obstructive sleep apnea syndrome Physician orders for life-sustaining treatment (POLST) form indicates patient wish for hc-gwn-ghcurbbuldy status (05/09/18) Polycythemia vera Sinus tachycardia Type 2 diabetes mellitus Surgical History H/O left wrist surgery (03/06/22) History of decompression of ulnar nerve (03/13/07) History of melanoma excision (2003) History of tubal ligation Family History Mother Coronary artery disease Paternal Grandmother Coronary artery disease Paternal Grandfather Stroke Other High blood pressure Social History Narrative: , retired nurse aid, lives [facility], 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 Does not drink alcohol Does not exercise Ex-smoker- quit 2013, 60 pack years Highest level of school completed/degree received: GED or equivalent Smoking Status: Former smoker Second hand tobacco smoke exposure: No How often do you have a drink containing alcohol: never AUDIT-C Alcohol total score: 0 Non-prescribed substance use: denies use Caffeine: Yes Are you now , , , , never or living with a partner: Social isolation score (0-1 are the most socially isolated patients): 0 service: No Meds Home Medications and Allergies Home Medications Medication Instructions Recorded Confirmed Type albuterol sulfate 90 mcg/actuation 2 inh inhalation Q4H PRN 02/13/22 06/18/22 History aerosol inhaler aspirin 81 mg tablet,delayed 81 mg PO DAILY 02/13/22 06/18/22 History release budesonide-formoterol HFA 160 2 puff inhalation BID 02/13/22 06/18/22 History mcg-4.5 mcg/actuation aerosol inhaler buspirone 10 mg tablet 10 mg PO BID 02/13/22 06/18/22 History diltiazem HCl 240 mg 240 mg PO DAILY 02/13/22 06/18/22 History capsule,extended release 24 hr metoprolol succinate 100 mg 100 mg PO DAILY 02/13/22 06/18/22 History tablet,extended release 24 hr trazodone 50 mg tablet 50 mg PO HS PRN 02/13/22 06/19/22 History venlafaxine 150 mg 150 mg PO DAILY 02/13/22 06/18/22 History capsule,extended release 24 hr Allergies Allergy/AdvReac Type Severity Reaction Status Date / Time acetylcysteine Allergy Unknown respiratory Verified 06/18/22 16:20 distress amlodipine Allergy Unknown Anaphylaxis Verified 06/18/22 16:20 ipratropium Allergy Unknown facial Verified 06/18/22 16:20 swelling tiotropium Allergy Unknown Verified 06/18/22 16:20 metformin AdvReac Severe Diarrhea Verified 06/18/22 16:20 Ortho Exam Narrative Exam Narrative: Patient is examined supine in the hospital bed. The skin about the right hip is intact. CMS to the foot is normal. Left wrist exam shows swelling on the ulnar side with some ecchymosis. There is no radial swelling, ecchymosis or tenderness. CMS is normal. Const Vital Signs, click to edit/add: Vital Signs - 24 hr 06/18/22 16:12 06/18/22 18:36 06/18/22 16:12 Temperature 97.2 F L Pulse Rate [Right Pulse Oximeter] 119 H 95 Respiratory Rate 20 Blood Pressure [Left Arm] Blood Pressure [Right Upper Arm] 139/86 Pulse Oximetry 94 92 93 Oxygen Delivery Method Nasal Cannula Nasal Cannula Nasal Cannula Oxygen Flow Rate 2 06/18/22 18:47 06/19/22 00:06 06/19/22 00:34 Temperature 98.3 F Pulse Rate [Right Pulse Oximeter] 93 101 H Respiratory Rate 18 20 20 Blood Pressure [Left Arm] Blood Pressure [Right Upper Arm] 125/61 Pulse Oximetry 92 90 90 Oxygen Delivery Method Nasal Cannula Nasal Cannula Nasal Cannula Oxygen Flow Rate 2 06/19/22 03:08 06/19/22 03:08 06/19/22 03:08 Temperature 99.2 F 99.2 F Pulse Rate [Right Pulse Oximeter] Respiratory Rate 20 20 20 Blood Pressure [Left Arm] 134/71 Blood Pressure [Right Upper Arm] Pulse Oximetry 91 91 91 Oxygen Delivery Method Nasal Cannula Nasal Cannula Nasal Cannula Oxygen Flow Rate 2 2 2 06/19/22 03:09 06/19/22 07:00 06/19/22 07:09 Temperature 99.2 F 98.0 F Pulse Rate [Right Pulse Oximeter] 110 H Respiratory Rate 20 22 Blood Pressure [Left Arm] 134/71 160/93 H Blood Pressure [Right Upper Arm] Pulse Oximetry 91 94 94 Oxygen Delivery Method Nasal Cannula Nasal Cannula Nasal Cannula Oxygen Flow Rate 2 2 2 06/19/22 12:13 Temperature 98.4 F Pulse Rate [Right Pulse Oximeter] 96 Respiratory Rate 20 Blood Pressure [Left Arm] 119/50 L Blood Pressure [Right Upper Arm] Pulse Oximetry 91 Oxygen Delivery Method Nasal Cannula Oxygen Flow Rate 2 Results Labs Labs: Laboratory Results - last 48 hr 06/18/22 06/18/22 06/18/22 18:21 18:43 18:43 WBC 16.68 H RBC 5.38 H Hgb 15.0 Hct 46.9 MCV 87 MCH 28 MCHC 32 RDW Coeff of Vance 14.1 Plt Count 289 Neut % (Auto) 81.5 H Lymph % (Auto) 10.5 L [place] % (Auto) 7.1 Eos % (Auto) 0.4 Baso % (Auto) 0.2 Neut # (Auto) 13.60 H Lymph # (Auto) 1.80 [place] # (Auto) 1.20 H Eos # (Auto) 0.10 Baso # (Auto) 0.00 Abs Immat Gran (auto) 0.05 INR 0.97 APTT 28 Sodium Potassium Chloride Carbon Dioxide BUN Creatinine Estimated Creat Clear Estimated GFR Glucose Calcium Urine Color Urine Appearance Urine pH Ur Specific [place] Urine Protein Urine Glucose (UA) Urine Ketones Urine Blood Urine Nitrite Urine Bilirubin Urine Urobilinogen Ur Leukocyte Esterase Urine RBC Urine WBC Ur Squamous Epith Cells Urine Bacteria Urine Mucus SARS-CoV-2 (PCR) Negative SARS-CoV-2 06/18/22 06/19/22 18:43 06:30 WBC RBC Hgb Hct MCV MCH MCHC RDW Coeff of Vance Plt Count Neut % (Auto) Lymph % (Auto) [place] % (Auto) Eos % (Auto) Baso % (Auto) Neut # (Auto) Lymph # (Auto) [place] # (Auto) Eos # (Auto) Baso # (Auto) Abs Immat Gran (auto) INR APTT Sodium 140 Potassium 4.6 Chloride 101 Carbon Dioxide 30 BUN 10 Creatinine 0.5 Estimated Creat Clear 45.85 Estimated GFR 101 Glucose 144 H Calcium 8.9 Urine Color Yellow Urine Appearance Clear Urine pH 5.5 Ur Specific [place] >= 1.030 Urine Protein 1+ A Urine Glucose (UA) Negative Urine Ketones Negative Urine Blood Negative Urine Nitrite Negative Urine Bilirubin Negative Urine Urobilinogen 0.2 Ur Leukocyte Esterase Negative Urine RBC 0-2 Urine WBC 0-2 Ur Squamous Epith Cells Few Urine Bacteria None Urine Mucus Moderate A SARS-CoV-2 (PCR) Diagnostic results Additional Comments: An AP pelvis AP and cross-table lateral views of right hip show a valgus impacted femoral neck fracture. There is no pre-existing hip joint arthritis, no obvious pathologic lesion. Three views of the left wrist show her previous wrist fracture is healed, with excellent alignment. There is no obvious new fracture. Assessment and Plan Assessment and plan (1) Fracture of femoral neck, right: Status: Acute Total time spent: Total time spent is greater than 50% in coordination of care (as documented) at patient's floor/unit and/or counseling patient: (2) Type 2 diabetes mellitus: Status: Acute Total time spent: Total time spent is greater than 50% in coordination of care (as documented) at patient's floor/unit and/or counseling patient: (3) COPD, severe: Status: Acute Total time spent: Total time spent is greater than 50% in coordination of care (as documented) at patient's floor/unit and/or counseling patient: (4) Leukocytosis: Problem comment: Chronic w/ neutrophilia thought due to chronic steroid use. Abstracted [place] record. Status: Acute Total time spent: Total time spent is greater than 50% in coordination of care (as documented) at patient's floor/unit and/or counseling patient: Plan Assessment: Valgus impacted right femoral neck fracture Left wrist pain after fall, no obvious fracture Plan: I told Vanessa that her right hip injury is best treated with closed reduction and cannulated screw fixation. The risks, benefits and expected outcomes were discussed in detail. These included but were not limited to: Infection, bleeding, injury to blood vessel or nerve, venous thromboembolism. All questions were answered to their satisfaction. She has been medically cleared for surgery, therefore we will plan to take her to the operating room today.
--- NOTE | 2022-06-19 14:58 | P.ORPRC_ITS ---
Procedure Note Date of procedure: 06/19/22 Procedure: SURGEON: Yann Wills MD DRY CLEANER PRESSER: RON [place] PREOPERATIVE DIAGNOSIS: Right hip valgus impacted femoral neck fracture POSTOPERATIVE DIAGNOSIS: Right hip valgus impacted femoral neck fracture NAME OF OPERATION: Right hip fracture ORIF IMPLANTS: Cannulated screws x3 ANESTHESIA: Spinal ESTIMATED BLOOD LOSS: 10 mL COMPLICATIONS: None SPECIMENS: None DRAINS: None PREOPERATIVE ANTIBIOTICS: Ancef 2 g INDICATIONS: The patient is a 71-year-old female who fell and now has right hip pain. They were admitted for workup and care. They were diagnosed with a valgus impacted right femoral neck fracture. They have been medically cleared for surgery. The risks, benefits and expected outcomes were discussed in detail. These included but were not limited to: Infection, bleeding, injury to blood vessel or nerve, venous thromboembolism. All questions were answered to their satisfaction. Use of an dietary assistant was necessary for patient positioning and safety, soft tissue retraction and closure, dressing application, and transfer of the patient to and from the hospital bed to the fracture table. PROCEDURE: Spinal anesthesia was administered. The patient was placed supine on the fracture table. The lower extremity was prepped and draped in the usual sterile fashion. Guide pin placement was estimated with the image intensifier. A lateral incision was made over the flare of the greater trochanter. Subcutaneous dissection was made with the Langston elevator to the lateral cortex of the femur. Our starting point was identified with the image intensifier. An inferior guide pin was placed on the AP view, center of the femoral head on the lateral view. Its placement was confirmed on both views. We placed this inferior screw, with a washer with no traction on the limb to reduce the valgus impaction. This nicely closed the inferior gap at the neck. We then placed 2 superior guide pins by hand 1 anterior and 1 posterior. We placed 2 remaining screws, placing a washer on the more posterior 1. Screws had excellent purchase. This construct was imaged with the C-arm and was felt to be well placed. The fracture fragments rotate as a single unit via fluoroscopy. The wound was irrigated with normal saline. The IT band was closed with an 0 Vicryl in an interrupted [id number] fashion. The subcutaneous tissues were reapproximated with a 2-0 Vicryl. Skin was closed with a running 3-0 Monocryl in a subcuticular fashion and glue. A dry dressing was applied. Sponge and needle counts were correct x2. The patient tolerated the procedure well. There were no apparent complications. They were carefully transferred to the hospital bed and taken to the postanesthesia care unit in satisfactory condition. PLAN: The patient will be mobilized with physical therapy, nonweightbearing on the right lower extremity for 6 weeks. Xarelto will be used for DVT prophylaxis. They will be discharged once medically appropriate.
[2022-06-19] MEDS: LACTATED RINGERS 1000 ML 1,000 ML 35 ML IV (15:11)
--- NOTE | 2022-06-19 16:21 | RESP.RT ---
Pt seen after surgery. On 4L NC, SPO2 88-92%. BBS decreased, no wheezing. She is pursed lip breathing. Wean oxygen to home prescription as she tolerates post surgery. Encourage deep breathing as needed.
[2022-06-19] MEDS: ACETAMINOPHEN 325 MG TABLET 650 MG PO ×2 (17:50→23:49)
[2022-06-19] MEDS: OXYCODONE 5 MG TABLET PO (18:20)
[2022-06-19] MEDS: LACTATED RINGERS 1000 ML 1,000 ML 75 ML IV (21:43)
[2022-06-19] MEDS: SENNOSIDES 1 TAB TABLET 2 TAB PO (21:44)
--- NOTE | 2022-06-19 22:42 | PC.NURSE ---
Shift Note: VSS, pt initially requiring 3-4L/O2 via NC to keep SpO2 88-90%. She is now 93% on 2L. Pt a/o, but argumentative and belligerent discussing POC. Stated her oxygen is always low despite education from property underwriter the parameters are to keep her levels at least or greater than 88% and 85% is too low. Resistant to moving up to chair but eventually was able to pivot from bed to recliner. NWB to RLE. Surgical dressings x3 C,D,&I with active ice in place. Regular diet.
[2022-06-20] VITALS (7 sets, daily range): BP systolic 134–166; BP diastolic 70–105; PULSE 82–102; RESP 18–20; TEMP 36.4–37; O2SAT 89–97
[2022-06-20] MEDS: LORazepam 0.5 MG TABLET PO ×2 (04:36→20:39)
--- NOTE | 2022-06-20 05:37 | PC.NURSE ---
[id number] Pt rested well during night. Pt removed IV, after waking up from a bad dream, new IV started in R hand. Pt anxious, crying, and wanted to go home. spoke with pt and pt calmed down. Dressing to R hip C/D/I, Pt prefers to sit cross legged in bed, educated pt on post op hip sx protocol, pt agreeable, but continues to sit cross legged. Denies pain to R hip, refused ice to site and SCD placement, educated on importance of both, pt still refused.
[2022-06-20] MEDS: ACETAMINOPHEN 325 MG TABLET 650 MG PO ×4 (05:45→23:47)
[2022-06-20 06:18] LABS: Hematocrit 44.7 % (33.0-51.0); Hemoglobin* 14.3 gm/dL (12.0-16.0); Mean Corpuscular HGB Conc 32 gm/dL (32-36); Mean Corpuscular Hemoglobin 28 pg (26-34); Mean Corpuscular Volume 87 fL (80-100); Platelet Count* 272 K/uL (140-440); Red Blood Count 5.14 m/uL (4.00-5.20); White Blood Count* 19.25 K/uL (4.50-11.00)
[2022-06-20 06:32] LABS: Slide Review Reflex No
[2022-06-20 06:33] LABS: Sodium* 140 mmol/L (135-149)
[2022-06-20 06:34] LABS: Potassium* 4.2 mmol/L (3.6-5.1)
[2022-06-20 06:37] LABS: Blood Urea Nitrogen* 12 mg/dL (7-30); Creatinine* 0.4 mg/dL (0.5-1.5); Est. Creatinine Clearance* 45.85; Estimated Glomerular Filt Rate 107 ml/min
--- NOTE | 2022-06-20 08:20 | PM.ORPN ---
Subjective Subjective Time Seen by Provider: 07:10 Date Seen: 06/20/22 Principal diagnosis: Status post right hip pinning Interval history: No acute events overnight. Hip pain managed with medications. She is comfortable this morning. Ortho Exam Narrative Exam Narrative: Alert. Patient is in no acute distress. Converses without labored breathing. Hearing is grossly intact. Bilateral calves are soft and nontender. Dressing is intact. No erythema. No soft tissue edema about the thigh or hip. Patient is sitting belkys-cross legged in bed. She is comfortable with her hip in this position. CMS intact right lower extremity. She can easily extend and flex her hip and knee on the right. Range of motion the ankle on the right is normal as well. Const Vital Signs, click to edit/add: Vital Signs - 24 hr 06/19/22 12:13 06/19/22 14:48 06/19/22 15:10 Temperature 98.4 F 97.7 F Pulse Rate 87 83 Pulse Rate [Left Apical] Pulse Rate [Right Pulse Oximeter] 96 Respiratory Rate 20 22 22 Blood Pressure 111/59 L 121/63 Blood Pressure [Left Arm] 119/50 L Pulse Oximetry 91 94 96 Oxygen Delivery Method Nasal Cannula Nasal Cannula Nasal Cannula Oxygen Flow Rate 2 3 3 06/19/22 15:15 06/19/22 15:21 06/19/22 14:55 Temperature 97.5 F L Pulse Rate 83 87 82 Pulse Rate [Left Apical] Pulse Rate [Right Pulse Oximeter] Respiratory Rate 18 18 20 Blood Pressure 116/58 L 111/77 116/64 Blood Pressure [Left Arm] Pulse Oximetry 95 94 97 Oxygen Delivery Method Nasal Cannula Nasal Cannula Nasal Cannula Oxygen Flow Rate 2 2 3 06/19/22 15:00 06/19/22 15:05 06/19/22 15:00 Temperature 97.5 F L 97.8 F Pulse Rate 88 85 86 Pulse Rate [Left Apical] Pulse Rate [Right Pulse Oximeter] Respiratory Rate 20 18 16 Blood Pressure 111/65 111/59 L Blood Pressure [Left Arm] 118/57 L Pulse Oximetry 97 97 Oxygen Delivery Method Nasal Cannula Nasal Cannula Nasal Cannula Oxygen Flow Rate 3 3 3 06/19/22 15:00 06/19/22 15:30 06/19/22 15:45 Temperature 97.8 F Pulse Rate Pulse Rate [Left Apical] 85 90 Pulse Rate [Right Pulse Oximeter] Respiratory Rate 16 16 16 Blood Pressure Blood Pressure [Left Arm] 118/61 115/59 L Pulse Oximetry 89 90 88 Oxygen Delivery Method Nasal Cannula Nasal Cannula Nasal Cannula Oxygen Flow Rate 3 3 3 06/19/22 16:00 06/19/22 16:15 06/19/22 15:00 Temperature Pulse Rate Pulse Rate [Left Apical] 90 92 86 Pulse Rate [Right Pulse Oximeter] Respiratory Rate 16 16 18 Blood Pressure Blood Pressure [Left Arm] 120/60 127/65 Pulse Oximetry 89 90 Oxygen Delivery Method Nasal Cannula Nasal Cannula Oxygen Flow Rate 3 3 06/19/22 16:45 06/19/22 17:15 06/19/22 18:15 Temperature 98 F Pulse Rate Pulse Rate [Left Apical] 94 93 104 H Pulse Rate [Right Pulse Oximeter] Respiratory Rate 16 16 16 Blood Pressure Blood Pressure [Left Arm] 155/68 H 149/78 H 128/67 Pulse Oximetry 92 93 90 Oxygen Delivery Method Nasal Cannula Nasal Cannula Nasal Cannula Oxygen Flow Rate 3 3 2 06/19/22 19:15 06/19/22 23:00 06/19/22 23:00 Temperature Pulse Rate Pulse Rate [Left Apical] 78 89 Pulse Rate [Right Pulse Oximeter] Respiratory Rate 16 16 20 Blood Pressure Blood Pressure [Left Arm] 123/57 L Pulse Oximetry 90 90 Oxygen Delivery Method Nasal Cannula Nasal Cannula Oxygen Flow Rate 2 2 06/19/22 23:00 06/20/22 02:52 06/20/22 07:00 Temperature 97.6 F 97.6 F 98.0 F Pulse Rate Pulse Rate [Left Apical] Pulse Rate [Right Pulse Oximeter] 96 84 98 Respiratory Rate 20 18 18 Blood Pressure Blood Pressure [Left Arm] 127/66 134/70 156/76 H Pulse Oximetry 89 94 91 Oxygen Delivery Method Nasal Cannula Nasal Cannula Nasal Cannula Oxygen Flow Rate 2 2 2 Documenting provider has reviewed patient's vital signs: yes Assessment and Plan Assessment and plan (1) Fracture of femoral neck, right: Status: Acute Assessment and Plan: Plan for discharge is home versus residential facility when she meets discharge criteria. Nonweightbearing right lower extremity x6 weeks DVT prophylaxis includes Xarelto 10 mg daily for 30 days, Evens stockings x1 month may remove for 1 hr per day, frequent ambulation Remove dressing 1 week. Observe wound and phone Orthopedics with any questions or concerns Use Ice on operative hip unrestricted. Return to clinic in 1 week with PA for a wound check Return to clinic in [address] Wills Minimize narcotic use. Wean off and discontinue soon as possible. Mobilize with physical therapy today. If she can move independently with a walker and nonweightbear right lower extremity, she will be able to go home with her daughter. Likely this will not be the case. She will likely need residential facility upon discharge. I have not completed discharge medications, for I will wait to hear discharge plans. (2) Type 2 diabetes mellitus: Status: Acute (3) COPD, severe: Status: Acute (4) Leukocytosis: Problem details: Chronic w/ neutrophilia thought due to chronic steroid use. Abstracted [place] record. Status: Acute
[2022-06-20] MEDS: METOPROLOL SUCCINATE (XL) 100 MG TAB PO (09:45)
[2022-06-20] MEDS: ROSUVASTATIN CALCIUM 10 MG TABLET 20 MG PO (09:45)
[2022-06-20] MEDS: RIVAROXABAN 10 MG TABLET PO (09:45)
[2022-06-20] MEDS: BUSPIRONE 10 MG TABLET PO ×2 (09:45→20:39)
[2022-06-20] MEDS: dilTIAZem 240 MG CAP (CD) PO (09:45)
[2022-06-20] MEDS: SENNOSIDES 1 TAB TABLET 2 TAB PO (09:45)
[2022-06-20] MEDS: VENLAFAXINE ER 75 MG CAPSULE 150 MG PO (09:45)
[2022-06-20] MEDS: ALBUTEROL INHALER 2 PUFF IH ×2 (10:00→16:55)
[2022-06-20] MEDS: OXYCODONE 5 MG TABLET PO (10:44)
--- NOTE | 2022-06-20 13:02 | PC.SOCIAL ---
Discharge plan: Met with pt who is requesting short term placement at [facility]. Pt lives in independent living on the [facility] campus. Pt states she is requestong placemnet a ta facility in [place] because her daughter is unable to drive out of town. Called [facility] and left a message. Faxing information and awaiting call back with decision on admit. general office worker to follow up as needed.
--- NOTE | 2022-06-20 14:17 | PM.IMPN1 ---
Progress Note: A&P Assessment and plan (1) Fracture of femoral neck, right: Problem details: ORIF yesterday. Nonweightbearing for 6 weeks. Status: Acute (2) Type 2 diabetes mellitus: Problem details: Mildly elevated blood sugars. Sliding scale insulin. Status: Acute (3) COPD, severe: Problem details: O2 dependent. Continue inhaled bronchodilators. 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 Abstracted [place] record. Status: Acute Plan Continue in hospital for management of COPD, pain, therapy and disposition plan Time Spent With Patient Total time spent: Total time spent today is 35 minutes, 25 minutes in coordination of care discussing with patient and other providers ongoing evaluation management of her disability and disposition plan Subjective Date Seen: 06/20/22 Interval history: 71-year-old female seen in followup of right femoral neck fracture and ORIF day 1. Patient reports frustration today that she is nonweightbearing on her right lower extremity secondary to the fracture and surgical repair. She reports that she is unable to manage this even with the assistance of the nurse standing by. After some discussion she agrees that looking into senior living facility for rehab may be necessary. She was intent on being at home with her daughter. She has fairly severe COPD. She thinks her breathing is not good but it is about at baseline. She is requiring oxygen to maintain her O2 sats. No chest pain. No new cough or fever. She reports a reasonably good appetite. She has not had a bowel movement last 2 days. She has urinary incontinence. Exam Narrative: Exam Narrative: She is alert and appears in no distress. She is verbalizing her frustrations about her current circumstances. Neck is supple without mass or adenopathy. Respirations with increased rate and work of breathing. Marked diminished breath sounds. Prolongation of expiratory phase. No marked wheezing. Cardiovascular: S1, S2, regular rate and rhythm. Abdomen is soft without tenderness or mass. No significant edema. She moves all 4 extremities well. Const: Vital Signs, click to edit/add: Vital Signs - 24 hr 06/19/22 14:48 06/19/22 15:10 06/19/22 15:15 Temperature 97.7 F Pulse Rate 87 83 83 Pulse Rate [Left A pical] Pulse Rate [Right Pulse Oximeter] Respiratory Rate 22 22 18 Blood Pressure 111/59 L 121/63 116/58 L Blood Pressure [Le ft Arm] Pulse Oximetry 94 96 95 Oxygen Delivery Me thod Nasal Cannula Nasal Cannula Nasal Cannula Oxygen Flow Rate 3 3 2 06/19/22 15:21 06/19/22 14:55 06/19/22 15:00 Temperature 97.5 F L Pulse Rate 87 82 88 Pulse Rate [Left A pical] Pulse Rate [Right Pulse Oximeter] Respiratory Rate 18 20 20 Blood Pressure 111/77 116/64 111/65 Blood Pressure [Le ft Arm] Pulse Oximetry 94 97 97 Oxygen Delivery Me thod Nasal Cannula Nasal Cannula Nasal Cannula Oxygen Flow Rate 2 3 3 06/19/22 15:05 06/19/22 15:00 06/19/22 15:00 Temperature 97.5 F L 97.8 F Pulse Rate 85 86 Pulse Rate [Left A pical] Pulse Rate [Right Pulse Oximeter] Respiratory Rate 18 16 16 Blood Pressure 111/59 L Blood Pressure [Le ft Arm] 118/57 L Pulse Oximetry 97 89 Oxygen Delivery Me thod Nasal Cannula Nasal Cannula Nasal Cannula Oxygen Flow Rate 3 3 3 06/19/22 15:30 06/19/22 15:45 06/19/22 16:00 Temperature 97.8 F Pulse Rate Pulse Rate [Left A pical] 85 90 90 Pulse Rate [Right Pulse Oximeter] Respiratory Rate 16 16 16 Blood Pressure Blood Pressure [Le ft Arm] 118/61 115/59 L 120/60 Pulse Oximetry 90 88 89 Oxygen Delivery Me thod Nasal Cannula Nasal Cannula Nasal Cannula Oxygen Flow Rate 3 3 3 06/19/22 16:15 06/19/22 15:00 06/19/22 16:45 Temperature Pulse Rate Pulse Rate [Left A pical] 92 86 94 Pulse Rate [Right Pulse Oximeter] Respiratory Rate 16 18 16 Blood Pressure Blood Pressure [Le ft Arm] 127/65 155/68 H Pulse Oximetry 90 92 Oxygen Delivery Me thod Nasal Cannula Nasal Cannula Oxygen Flow Rate 3 3 06/19/22 17:15 06/19/22 18:15 06/19/22 19:15 Temperature 98 F Pulse Rate Pulse Rate [Left A pical] 93 104 H 78 Pulse Rate [Right Pulse Oximeter] Respiratory Rate 16 16 16 Blood Pressure Blood Pressure [Le ft Arm] 149/78 H 128/67 123/57 L Pulse Oximetry 93 90 90 Oxygen Delivery Me thod Nasal Cannula Nasal Cannula Nasal Cannula Oxygen Flow Rate 3 2 2 06/19/22 23:00 06/19/22 23:00 06/19/22 23:00 Temperature 97.6 F Pulse Rate Pulse Rate [Left A pical] 89 Pulse Rate [Right Pulse Oximeter] 96 Respiratory Rate 16 20 20 Blood Pressure Blood Pressure [Le ft Arm] 127/66 Pulse Oximetry 90 89 Oxygen Delivery Me thod Nasal Cannula Nasal Cannula Oxygen Flow Rate 2 2 06/20/22 02:52 06/20/22 07:00 06/20/22 07:00 Temperature 97.6 F 98.0 F Pulse Rate Pulse Rate [Left A pical] Pulse Rate [Right Pulse Oximeter] 84 98 Respiratory Rate 18 18 18 Blood Pressure Blood Pressure [Le ft Arm] 134/70 156/76 H Pulse Oximetry 94 91 91 Oxygen Delivery Me thod Nasal Cannula Nasal Cannula Nasal Cannula Oxygen Flow Rate 2 2 2 06/20/22 11:00 Temperature 97.9 F Pulse Rate Pulse Rate [Left A pical] Pulse Rate [Right Pulse Oximeter] 100 Respiratory Rate 20 Blood Pressure Blood Pressure [Le ft Arm] 138/73 Pulse Oximetry 89 Oxygen Delivery Me thod Nasal Cannula Oxygen Flow Rate 2 Labs Labs: Laboratory Results - last 24 hr 06/20/22 06/20/22 05:50 05:50 WBC 19.25 H RBC 5.14 Hgb 14.3 Hct 44.7 MCV 87 MCH 28 MCHC 32 Plt Count 272 Sodium 140 Potassium 4.2 BUN 12 Creatinine 0.4 L Estimated Creat Clear 45.85 Estimated GFR 107
--- NOTE | 2022-06-20 14:54 | PC.NURSE ---
Januvia-- Daughter brought in a loose pill stating that it was pt's Januvia. Pt and daughter were informed that we cannot administer a loose pill without proper documentation of what medication is. This nurse explained that all medications need to go through the pharmacist and medical record so that the Doctor is clearly aware what medications patient has taken. Pill was returned to daughter to take home with her with clear instructions that pt is not to take medication at this time. Daughter was agreeable. Pt expressed frustration with medication changes while she is in the hospital. She stated, the doctor needs to go back to school. He should ask me what medications I need.
--- NOTE | 2022-06-20 16:36 | PC.SOCIAL ---
Discharge planning: Received call back from [facility] stating they can likely accept pt for admit for rehab on Saturday06/22/22. Awaiting final decision on admit. motion picture set up worker to follow up as needed.
--- NOTE | 2022-06-20 20:00 | PC.NURSE ---
End of shift-- Alert and oriented patient. Pt speaks continuously and frequently complains and curses at staff. At one point, pt c/o about TARPER not promptly bringing her back a pillowcase. At another pt became upset and transferred herself from chair to bed stating that she couldn't reach her call light. Call light was then found in chair. Dressing to right hip is C/D/I and CMS is WNL. LS CTA. She denied nausea and tolerated a regular diet without difficulty. She stated she hasn't had a BM for a few days but declined intervention stating that she hasn't eaten anything and it's common sense that she wouldn't go. Pt is non-weightbearing on right leg and is aware, however, pt was up to the chair and commode with assist of 2, belt and walker and does put some weight on right leg despite instructions. She was incontinent of urine several times today. Blood sugars today were 213, 228 and 158 and MD was notified. Sliding scale insulin ordered. Report to [facility].
[2022-06-20] MEDS: SODIUM CHLORIDE 0.9 % (FLUSH) 10 ML SYRINGE IVF (20:39)
[2022-06-20] MEDS: TRAZODONE HCL 50 MG TABLET PO (20:50)
[2022-06-21] VITALS (7 sets, daily range): BP systolic 137–162; BP diastolic 65–95; PULSE 86–109; RESP 18–20; TEMP 36.6–37; O2SAT 90–97
--- NOTE | 2022-06-21 04:37 | PC.NURSE ---
[id number]: patient fatigued, no c/o pain, ice to surgical hip, Mepilex c/d/i. patient incontinent of bladder requiring full linen change this shift.
[2022-06-21] MEDS: ACETAMINOPHEN 325 MG TABLET 650 MG PO ×3 (06:49→18:00)
[2022-06-21 07:02] LABS: Hematocrit 44.4 % (33.0-51.0); Mean Corpuscular HGB Conc 32 gm/dL (32-36); Mean Corpuscular Hemoglobin 27 pg (26-34); Mean Corpuscular Volume 87 fL (80-100); Platelet Count* 313 K/uL (140-440); Red Blood Count 5.13 m/uL (4.00-5.20); White Blood Count* 19.71 K/uL (4.50-11.00)
[2022-06-21 07:05] LABS: Slide Review Reflex No
[2022-06-21 07:14] LABS: Sodium* 140 mmol/L (135-149)
[2022-06-21 07:15] LABS: Potassium* 3.7 mmol/L (3.6-5.1)
[2022-06-21 07:18] LABS: Blood Urea Nitrogen* 13 mg/dL (7-30); Creatinine* 0.4 mg/dL (0.5-1.5); Est. Creatinine Clearance* 45.85; Estimated Glomerular Filt Rate 107 ml/min
[2022-06-21] MEDS: dilTIAZem 240 MG CAP (CD) PO (08:49)
[2022-06-21] MEDS: VENLAFAXINE ER 75 MG CAPSULE 150 MG PO (08:50)
[2022-06-21] MEDS: METOPROLOL SUCCINATE (XL) 100 MG TAB PO (08:50)
[2022-06-21] MEDS: RIVAROXABAN 10 MG TABLET PO (08:50)
[2022-06-21] MEDS: BUSPIRONE 10 MG TABLET PO ×2 (08:50→21:20)
--- NOTE | 2022-06-21 08:50 | P.ORPN_ITS ---
Subjective Subjective Time Seen by Provider: 08:50 Date Seen: 06/21/22 Principal diagnosis: Status post right hip pinning Interval history: 71-year-old female seen in followup of right femoral neck fracture and ORIF day 2. Patient reports frustration today that she is nonweightbearing on her right lower extremity secondary to the fracture and surgical repair. Social work notes states that there will be a bed available for her at [facility], likely tomorrow. Ortho Exam Narrative Exam Narrative: Alert and oriented. Patient is in no acute distress. Converses without labored breathing. Hearing is grossly intact. Non weight-bearing right lower extremity. CMS intact. Mild soft tissue edema about the right hip and thigh. Bilateral calves are soft nontender. Const Vital Signs, click to edit/add: Vital Signs - 24 hr 06/20/22 11:00 06/20/22 16:49 06/20/22 15:00 Temperature 97.9 F 97.9 F Pulse Rate [Left Apical] 102 H Pulse Rate [Right Pulse Oximeter] 100 Respiratory Rate 20 18 Blood Pressure [Left Arm] 138/73 156/101 H Pulse Oximetry 89 92 Oxygen Delivery Method Nasal Cannula Nasal Cannula Oxygen Flow Rate 2 2 06/20/22 15:00 06/20/22 15:00 06/20/22 20:16 Temperature 98.6 F Pulse Rate [Left Apical] 102 H 82 Pulse Rate [Right Pulse Oximeter] 100 Respiratory Rate 18 18 20 Blood Pressure [Left Arm] 166/105 H Pulse Oximetry 92 93 Oxygen Delivery Method Nasal Cannula Nasal Cannula Oxygen Flow Rate 2 2 06/20/22 23:00 06/20/22 23:00 06/21/22 00:00 Temperature Pulse Rate [Left Apical] 82 87 Pulse Rate [Right Pulse Oximeter] 100 Respiratory Rate 20 20 20 Blood Pressure [Left Arm] 145/71 H Pulse Oximetry 97 97 Oxygen Delivery Method Nasal Cannula Nasal Cannula Oxygen Flow Rate 2 2 06/21/22 03:00 Temperature 98.6 F Pulse Rate [Left Apical] 86 Pulse Rate [Right Pulse Oximeter] Respiratory Rate 20 Blood Pressure [Left Arm] 139/67 Pulse Oximetry 93 Oxygen Delivery Method Nasal Cannula Oxygen Flow Rate 2 Documenting provider has reviewed patient's vital signs: yes Assessment and Plan Assessment and plan (1) Fracture of femoral neck, right: Problem details: ORIF Saturday. Nonweightbearing for 6 weeks. Status: Acute Assessment and Plan: Plan for discharge is tomorrow to [facility] if they meet discharge criteria. DVT prophylaxis includes Xarelto 10 mg daily 30 days, then Evens stockings x1 month may remove for 1 hr per day, frequent ambulation Remove dressing 1 week. Observe wound and phone Orthopedics with any questions or concerns Use Ice on operative hip unrestricted. Return to clinic in [address] Wills Minimize narcotic use. Wean off and discontinue soon as possible. Nonweightbearing right lower extremity [facility] (2) Type 2 diabetes mellitus: Problem details: Mildly elevated blood sugars. Sliding scale insulin. Status: Acute (3) COPD, severe: Problem details: O2 dependent. Continue inhaled bronchodilators. 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 Abstracted [place] record. Status: Acute
[2022-06-21] MEDS: SODIUM CHLORIDE 0.9 % (FLUSH) 10 ML SYRINGE IVF ×2 (08:51→21:29)
[2022-06-21] MEDS: ROSUVASTATIN CALCIUM 10 MG TABLET 20 MG PO (08:53)
[2022-06-21] MEDS: OXYCODONE 5 MG TABLET PO (11:28)
--- NOTE | 2022-06-21 12:46 | PC.SOCIAL ---
Discharge planning- Received a phone call from Caitlyn at [facility]. Caitlyn states that pt can admit tomorrow 06-22-22. Phone call to pt's daughter, Rajani. Updated her on discharge plans and discussed transportation to [facility]. Rajani would like this worker to check with pt also but she believes pt will want to transport with [facility] due to pt not being able to get into daughter's car easily. Met with Pt in pt's room. Discussed transportation. Pt would like to transport via [facility] to [facility]. Phone call to [facility] to set up transportation. [facility] will transport tomorrow 06-22-22 at 10:00 am. Made a phone call to Caitlyn at [facility] and left a voicemail providing an update on discharge time.
--- NOTE | 2022-06-21 12:58 | PC.SOCIAL ---
Completed preadmission screening for pt to admit to [facility] on 06-22-2022. Confirmation #[id number]. Faxed preadmission screen to [facility].
[2022-06-21] MEDS: ALBUTEROL INHALER 2 PUFF IH (15:52)
--- NOTE | 2022-06-21 16:34 | P.IMPN_ITS ---
Progress Note: A&P Assessment and plan (1) Fracture of femoral neck, right: Problem details: ORIF Saturday. Nonweightbearing for 6 weeks. Status: Acute (2) Type 2 diabetes mellitus: Problem details: Mildly elevated blood sugars. Sliding scale insulin. Status: Acute (3) COPD, severe: Problem details: O2 dependent. Continue inhaled bronchodilators. No clear indication for systemic steroid use right now. 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 Abstracted [facility] record. Status: Acute Plan Continue in hospital for another day of management of pain, therapy and respiratory management. Possible discharge to skilled nursing tomorrow for ongoing rehabilitation. Time Spent With Patient Total time spent: Total time spent today is 30 minutes, 20 minutes in course care and discussing with patient and other providers ongoing evaluation management of hip fracture surgery and COPD Subjective Date Seen: 06/21/22 Interval history: 71-year-old female seen in followup of hip fracture with ORIF and also COPD. She is doing better today. Her mood is better. She reports her pain is better. Breathing continues to be poor with any activity but she reports that is her baseline with her severe COPD. Exam Narrative: Exam Narrative: She is alert and appears in no distress. She has increased rate and work of breathing. Breath sounds are markedly diminished in all lung haider. No marked wheezing rales or rhonchi. Cardiovascular: S1, S2, regular rate and rhythm. Abdomen is soft without tenderness or mass. Extremities with intact pulses and sensation. No edema. Const: Vital Signs, click to edit/add: Vital Signs - 24 hr 06/20/22 16:49 06/20/22 20:16 06/20/22 23:00 Temperature 97.9 F 98.6 F Pulse Rate [Left A pical] 82 82 Pulse Rate [Right Pulse Oximeter] 100 Respiratory Rate 20 20 Blood Pressure [Le ft Arm] 166/105 H Pulse Oximetry 93 Oxygen Delivery Me thod Nasal Cannula Oxygen Flow Rate 2 06/20/22 23:00 06/21/22 00:00 06/21/22 03:00 Temperature 98.6 F Pulse Rate [Left A pical] 87 86 Pulse Rate [Right Pulse Oximeter] Respiratory Rate 20 20 20 Blood Pressure [Le ft Arm] 145/71 H 139/67 Pulse Oximetry 97 97 93 Oxygen Delivery Me thod Nasal Cannula Nasal Cannula Nasal Cannula Oxygen Flow Rate 2 2 2 06/21/22 07:00 06/21/22 07:00 06/21/22 07:00 Temperature 98.6 F Pulse Rate [Left A pical] Pulse Rate [Right Pulse Oximeter] 109 H Respiratory Rate 20 20 20 Blood Pressure [Le ft Arm] 157/86 H Pulse Oximetry 92 92 Oxygen Delivery Me thod Nasal Cannula Nasal Cannula Oxygen Flow Rate 2 2 06/21/22 11:00 06/21/22 15:00 06/21/22 15:00 Temperature Pulse Rate [Left A pical] Pulse Rate [Right Pulse Oximeter] 97 Respiratory Rate 20 18 18 Blood Pressure [Le ft Arm] 137/65 Pulse Oximetry 90 94 Oxygen Delivery Me thod Nasal Cannula Nasal Cannula Oxygen Flow Rate 2 2 06/21/22 15:00 Temperature 98.0 F Pulse Rate [Left A pical] Pulse Rate [Right Pulse Oximeter] 91 Respiratory Rate 18 Blood Pressure [Le ft Arm] 150/95 H Pulse Oximetry 94 Oxygen Delivery Me thod Nasal Cannula Oxygen Flow Rate 2 Labs Labs: Laboratory Results - last 24 hr 06/21/22 06/21/22 06:06 06:06 WBC 19.71 H RBC 5.13 Hgb 14.0 Hct 44.4 MCV 87 MCH 27 MCHC 32 Plt Count 313 Sodium 140 Potassium 3.7 BUN 13 Creatinine 0.4 L Estimated Creat Clear 45.85 Estimated GFR 107
--- NOTE | 2022-06-21 17:23 | PC.NURSE ---
SHIFT REPORT: PATIENT COOPERATIVE WITH STAFFING, UP PIVOT 2A WITH WALKER AND BELT TOLERATING FAIRLY NWB ON RLE, MINIMAL PAIN IN RLE PAIN BEING MANAGED WITH PRN OXYCODONE AND SCHEDULED TYLENOL, TOLERATING REGULAR DIET, TEDS AND SCDS, DRESSING R HIP INTACT, MEPILEX APPLIED TO RIGHT ELBOW TODAY PER PATIENT REQUEST, SPLINT TO LEFT WRIST PER MD ORDERS, IV REMOVED CATHETER INTACT PER MD ORDER, INCONTINENT OF BLADDER, NO BOWEL MOVEMENT, DECLINING STOOL SOFTENER, PATIENT EDUCATED ON THE USE OF STOOL SOFTENERS AFTER SURGERY AND CONTINUED TO DECLINE.
[2022-06-21] MEDS: TRAZODONE HCL 50 MG TABLET PO (22:00)
[2022-06-21] MEDS: LORazepam 0.5 MG TABLET PO (22:00)
[2022-06-22] MEDS: ACETAMINOPHEN 325 MG TABLET 650 MG PO ×2 (00:16→06:19)
[2022-06-22 03:30] VITALS: BP 141/75; PULSE 86; RESP 20; TEMP 36.4; O2SAT 94
[2022-06-22] MEDS: OXYCODONE 5 MG TABLET PO ×2 (03:48→09:02)
[2022-06-22 07:00] VITALS: BP 148/72; PULSE 88; PULSE 98; RESP 20; TEMP 36.7; O2SAT 95
--- NOTE | 2022-06-22 07:04 | PC.NURSE ---
END OF SHIFT NOTE:?PT PLEASANT AND COOPERATIVE THROUGHOUT SHIFT. VSS ON 2L NC; AFEBRILE. CHANGED BRIEF AND REPOSITIONED PRN. DRESSING TO RIGHT HIP CDI. MEPILEX APPLIED TO RIGHT ELBOW. PT RATED LOWER BACK PAIN 5-7/10; WITH RELIEF FROM SCHEDULED TYLENOL AND PRN OXYCODONE.
[2022-06-22 07:14] LABS: Hematocrit 44.4 % (33.0-51.0); Hemoglobin* 14.1 gm/dL (12.0-16.0); Mean Corpuscular HGB Conc 32 gm/dL (32-36); Mean Corpuscular Hemoglobin 28 pg (26-34); Mean Corpuscular Volume 87 fL (80-100); Platelet Count* 333 K/uL (140-440); Red Blood Count 5.13 m/uL (4.00-5.20); White Blood Count* 12.85 K/uL (4.50-11.00)
[2022-06-22 07:18] LABS: Slide Review Reflex No
[2022-06-22 07:27] LABS: Potassium* 3.2 mmol/L (3.6-5.1); Sodium* 140 mmol/L (135-149)
[2022-06-22 07:30] LABS: Blood Urea Nitrogen* 15 mg/dL (7-30); Creatinine* 0.4 mg/dL (0.5-1.5); Est. Creatinine Clearance* 45.85; Estimated Glomerular Filt Rate 107 ml/min
[2022-06-22] MEDS: METOPROLOL SUCCINATE (XL) 100 MG TAB PO (09:00)
[2022-06-22] MEDS: dilTIAZem 240 MG CAP (CD) PO (09:00)
[2022-06-22] MEDS: RIVAROXABAN 10 MG TABLET PO (09:00)
[2022-06-22] MEDS: BUSPIRONE 10 MG TABLET PO (09:00)
[2022-06-22] MEDS: VENLAFAXINE ER 75 MG CAPSULE 150 MG PO (09:01)
[2022-06-22] MEDS: SITAGLIPTIN PHOSPHATE 50 MG TABLET 100 MG PO (09:02)
[2022-06-22] MEDS: ROSUVASTATIN CALCIUM 10 MG TABLET 20 MG PO (09:09)
[2022-06-22] MEDS: POTASSIUM BICARB 25 MEQ EFFERVESCENT TAB 50 MEQ PO (09:31)
[2022-06-22 11:00] VITALS: BP 111/77; PULSE 87; RESP 20; TEMP 36.7
--- NOTE | 2022-06-22 13:45 | PM.DS1 ---
DS: Providers Provider Date Seen: 06/22/22 Date of admission: 06/18/22 22:58 Primary care physician: Beatrice Cohen MD Admitting Clinician: Sudha Enriquez MD Attending Physician on discharge: Sudha Enriquez MD Date of Discharge: 06/22/22 DS: Diagnosis Discharge Diagnosis (1) Fracture of femoral neck, right: Status: Acute Problem details: ORIF Saturday. Nonweightbearing on right leg for 6 weeks. (2) Type 2 diabetes mellitus: Status: Acute Problem details: Mildly elevated blood sugars. Sliding scale insulin. Adequate blood sugar control (3) COPD, severe: Status: Acute Problem details: O2 dependent. Continue inhaled bronchodilators. Patient is symptomatic with minimal activity. Moves slowly with therapy and nursing staff because of severe dyspnea. (4) Depression: Status: Chronic (5) Anxiety: Status: Chronic Problem details: Gets very anxious especially when she is short of breath (6) Physician orders for life-sustaining treatment (POLST) form indicates patient wish for [id number] status: Status: Acute (7) Obstructive sleep apnea syndrome: Status: Chronic Problem details: AHI 25.68 on 03/14/17. Intolerant to CPAP. (8) Chronic respiratory failure with hypoxia, on home oxygen therapy: Status: Chronic (9) Severe chronic obstructive pulmonary disease: Status: Acute DS: Summary Hospital Course Hospital Course: 71-year-old female admitted to the hospital after a fall and sustaining a right impacted femoral neck fracture. She was taken to the operating room by Dr. Wills where she underwent ORIF with pinning of her hip. Postoperatively she has generally done well. Her COPD which is severe at baseline did not have a significant exacerbation during this hospital stay. She struggled with therapy due to dyspnea with minimal activity however. She also gets quite anxious when she gets short of breath. She had no operative or postoperative complications. Status at Discharge Functional status at discharge: bed bound Overall status at discharge: patient is progressing back to baseline Time Spent with Patient Time attestation: Total time spent providing and/or coordinating discharge services: Time spent: Greater than 30 minutes Exam Narrative: Exam Narrative: She is alert and appears in no distress. She is oriented to her circumstances. She has increased rate and work of breathing. Lung sounds are markedly diminished in all lung haider. No wheezing or crackles of significance. Cardiovascular: S1, S2, regular rate and rhythm. Abdomen is soft without tenderness or mass. Hip incision without marked Const: Vital Signs, click to edit/add: Vital Signs - 24 hr 06/21/22 15:00 06/21/22 15:00 06/21/22 15:00 Temperature 98.0 F Pulse Rate Pulse Rate [Left A pical] Pulse Rate [Right Pulse Oximeter] 91 Respiratory Rate 18 18 18 Blood Pressure Blood Pressure [Le ft Arm] 150/95 H Pulse Oximetry 94 94 Oxygen Delivery Me thod Nasal Cannula Nasal Cannula Oxygen Flow Rate 2 2 06/21/22 19:00 06/21/22 23:00 06/21/22 23:00 Temperature 98 F Pulse Rate Pulse Rate [Left A pical] 98 Pulse Rate [Right Pulse Oximeter] 98 89 Respiratory Rate 20 20 20 Blood Pressure Blood Pressure [Le ft Arm] 153/72 H Pulse Oximetry 93 94 Oxygen Delivery Me thod Nasal Cannula Nasal Cannula Oxygen Flow Rate 2 2 06/21/22 23:00 06/22/22 03:30 06/22/22 07:00 Temperature 97.8 F 97.6 F Pulse Rate Pulse Rate [Left A pical] Pulse Rate [Right Pulse Oximeter] 89 86 Respiratory Rate 20 20 20 Blood Pressure Blood Pressure [Le ft Arm] 162/77 H 141/75 H Pulse Oximetry 94 94 95 Oxygen Delivery Me thod Nasal Cannula Nasal Cannula Nasal Cannula Oxygen Flow Rate 2 2 2 06/22/22 07:00 06/22/22 07:00 06/22/22 11:00 Temperature 98.0 F 98.0 F Pulse Rate 87 Pulse Rate [Left A pical] 98 Pulse Rate [Right Pulse Oximeter] 88 88 Respiratory Rate 20 20 20 Blood Pressure 111/77 Blood Pressure [Le ft Arm] 148/72 H Pulse Oximetry 95 Oxygen Delivery Me thod Nasal Cannula Oxygen Flow Rate 2 Documenting provider has reviewed patient's vital signs: yes DS: Data Data Completed and Pending Labs on day of discharge: Labs from last 24 hours 06/22/22 06/22/22 05:46 05:46 WBC 12.85 H RBC 5.13 Hgb 14.1 Hct 44.4 MCV 87 MCH 28 MCHC 32 Plt Count 333 Sodium 140 Potassium 3.2 L BUN 15 Creatinine 0.4 L Estimated Creat Clear 45.85 Estimated GFR 107 Discharge Plan Discharge Disposition: Xfer [facility] Date of Admission: 06/18/22 22:58 Attending Provider on Discharge: Mendoza Pelletier Primary Care Provider: Beatrice Cohen Condition: Improved Discharge Medications: New acetaminophen 325 mg Tablet 650 mg PO Q6H PRN (Reason: pain) Qty: 100 0RF Xarelto 10 mg Tablet 10 mg PO DAILY 30 Days Qty: 30 0RF oxycodone 5 mg Tablet 2.5 - 5 mg PO Q4-6H MDD 6 TABS PER DAY PRN (Reason: Pain) Qty: 30 0RF sennosides [Senna Lax] 8.6 mg Tablet 17.2 mg PO BID PRN (Reason: constipation) Qty: 100 0RF potassium chloride 10 mEq capsule, extended release 10 meq PO DAILY Qty: 30 2RF Continued rosuvastatin 20 mg tablet 20 mg PO DAILY Qty: 90 4RF sitagliptin phosphate 100 mg tablet 100 mg PO DAILY Qty: 90 4RF budesonide-formoterol 160-4.5 mcg/actuation HFA aerosol inhaler 2 puff inhalation BID Rx Instructions: BRAND NAME ONLY buspirone 10 mg tablet 10 mg PO BID venlafaxine 150 mg capsule,extended release 24hr 150 mg PO DAILY diltiazem HCl 240 mg capsule,extended release 24hr 240 mg PO DAILY albuterol sulfate 90 mcg/actuation HFA aerosol inhaler 2 inh inhalation Q4H PRN metoprolol succinate 100 mg tablet extended release 24 hr 100 mg PO DAILY trazodone 50 mg tablet 50 mg PO HS PRN lorazepam 0.5 mg tablet 0.25 mg PO BID PRN (Reason: anxiety) Qty: 30 0RF Rx Instructions: Please take half a tab BID PRN as needed for severe anxiety ONLY. Discontinued aspirin 81 mg tablet,delayed release (DR/EC) 81 mg PO DAILY Discharge Orders: Discharge Order (Routine); Ordered 06/22/22 Ordered By: Mendoza Pelletier Activity Detail: No weight bearing on Rt lower extremity for 6 weeks. Keep dressing on for 1 week. Dressing is waterproof. May shower. Surgical glue covers the wound. Ice and elevate operative extremity without restriction. Wear compression stockings for 1 month post surgery. May remove for 1 hour per day. Move about every hour throughout the day with crutches or walker or wheelchair to keep blood circulating well. Do not drive while taking narcotic pain medication. Do not drink alcohol while taking narcotic pain medication. May drive when safe to do so and have full function of the extremities, this will take 6 weeks or more. Notify Orthopedics with any questions or concerns. ([phone]) Oxygen at 2 L per nasal cannula chronically Check basic metabolic panel in 1 week Discharge Diet: Regular Follow Up Appointments: Beatrice Cohen MD [Primary Care Provider] - Discharge Comments: Orthopedic appt with Dr Wills in 6 weeks.
== END 2022-06-22 09:56 | DRG 308 ==
LOC: ED 17:28 → MEDSURG 22:59
PROVIDERS: Orthopaedic Surgery; Admitting Provider Family Medicine; Emergency Provider Emergency Medicine; PCP Family Medicine; Visit Provider Family Medicine
PROC: 0QS604Z Reposition Right Upper Femur with Internal Fixation Device, Open Approach (ICD-10-PCS; principal; 2022-06-19 12:15)
DX: S72.001A Fracture of unspecified part of neck of right femur, initial encounter for closed fracture (principal); W19.XXXA Unspecified fall, initial encounter; S70.12XA Contusion of left thigh, initial encounter; M25.532 Pain in left wrist; J44.9 Chronic obstructive pulmonary disease, unspecified; J96.11 Chronic respiratory failure with hypoxia; Z99.81 Dependence on supplemental oxygen; I10 Essential (primary) hypertension; E11.65 Type 2 diabetes mellitus with hyperglycemia; D70.2 Other drug-induced agranulocytosis; T38.0X5A Adverse effect of glucocorticoids and synthetic analogues, initial encounter; Z79.4 Long term (current) use of insulin; F41.9 Anxiety disorder, unspecified; F32.A Depression, unspecified; I44.0 Atrioventricular block, first degree; Z87.891 Personal history of nicotine dependence; D45 Polycythemia vera; E78.5 Hyperlipidemia, unspecified
CPT/HCPCS: 01210; 36415; 64450; 73110; 73501; 73502; 76942; 80048; 81003; 81015; 82565; 82947; 82962; 84132; 84295; 84520; 85025; 85027; 85610; 85730; 87635; 93005; 94761; 97110; 97162; 97165; 97530; 97535; 99140; 99284; 99285; A9270; C1713; J0690; J2250; J2270; J2370; J2704; J3490; J7030; J7120

== ENCOUNTER 2022-09-25 10:41 | Outpatient (CLI) | payer BC, SELFPAY ==
[2022-09-25 15:03] LABS: Albumin* 4.1 g/dL (3.3-5.0); Chloride* 101 mmol/L (96-114); Potassium* 4.3 mmol/L (3.6-5.1); Sodium* 140 mmol/L (135-149)
[2022-09-25 15:05] LABS: Bilirubin Total* 0.4 mg/dL (0.1-1.5); Carbon Dioxide* 32 mmol/L (20-32); Creatinine* 0.5 mg/dL (0.5-1.5); Estimated Glomerular Filt Rate 101 ml/min
[2022-09-25 15:06] LABS: Alanine Aminotransferase* 17 U/L (4-35); Alkaline Phosphatase* 101 U/L (40-150); Aspartate Amino Transferase* 18 U/L (12-35); Blood Urea Nitrogen* 9 mg/dL (7-30); Calcium* 9.1 mg/dL (8.4-10.6); Glucose* 153 mg/dL (60-115); Total Protein* 6.8 g/dL (6.0-8.3)
== END 2022-09-25 10:42 | disposition home or self-care (01) ==
PROVIDERS: PCP Family Medicine; Visit Provider Family Medicine
DX: I10 Essential (primary) hypertension (principal)
CPT/HCPCS: 80053; 82043; 82570

== ENCOUNTER 2022-10-02 11:07 | Outpatient (CLI) | payer BC, SELFPAY ==
[2022-10-02 11:59] LABS: Creatinine Urine 162.3 mg/dL
[2022-10-02 12:03] LABS: Microalbumin Creatinine Ratio 20 mg/g (0-30); Microalbumin Urine 4 mg/dL
[2022-10-02 17:50] LABS: Vitamin D 25 Hydroxy* 27 ng/mL (30-80)
== END 2022-10-02 11:08 | disposition home or self-care (01) ==
PROVIDERS: PCP Family Medicine; Visit Provider Family Medicine
DX: R80.9 Proteinuria, unspecified (principal); M81.0 Age-related osteoporosis without current pathological fracture
CPT/HCPCS: 82043; 82306; 82570

== ENCOUNTER 2023-02-08 10:50 | Outpatient (CLI) | payer BC, SELFPAY | END 2023-02-08 10:51 | disposition home or self-care (01) | LOC: NFLDREF 12:01 | PROVIDERS: PCP Family Medicine; Referring Provider Family Medicine; Visit Provider Family Medicine | DX: E55.9 Vitamin D deficiency, unspecified (principal); I10 Essential (primary) hypertension; R73.03 Prediabetes; E11.9 Type 2 diabetes mellitus without complications; E78.5 Hyperlipidemia, unspecified | CPT/HCPCS: 80053; 80061; 82043; 82306; 82570; 82652 ==

== ENCOUNTER 2023-08-22 10:05 | Outpatient (CLI) | payer BC, SELFPAY | END 2023-08-22 10:06 | disposition home or self-care (01) | LOC: NFLDREF 08-28 18:18 | PROVIDERS: PCP Family Medicine; Referring Provider Family Medicine; Visit Provider Family Medicine | DX: E11.69 Type 2 diabetes mellitus with other specified complication (principal); E66.9 Obesity, unspecified; I10 Essential (primary) hypertension; R80.9 Proteinuria, unspecified | CPT/HCPCS: 80053; 80061; 82043; 82570 ==

== ENCOUNTER 2024-03-19 10:12 | Outpatient (CLI) | payer BC, SELFPAY | END 2024-03-19 10:13 | disposition home or self-care (01) | LOC: NFLDREF 03-21 08:42 | PROVIDERS: PCP Family Medicine; Referring Provider Family Medicine; Visit Provider Family Medicine | DX: E11.9 Type 2 diabetes mellitus without complications (principal); M81.0 Age-related osteoporosis without current pathological fracture; E78.5 Hyperlipidemia, unspecified; I10 Essential (primary) hypertension; R53.83 Other fatigue | CPT/HCPCS: 80053; 80061; 82043; 82306; 82570; 82607; 84443 ==

== ENCOUNTER 2024-03-24 12:38 | Outpatient (CLI) | payer BC, SELFPAY | END 2024-03-24 12:39 | disposition home or self-care (01) | LOC: NFLDREF 03-25 11:02 | PROVIDERS: PCP Family Medicine; Referring Provider Family Medicine; Visit Provider Family Medicine | DX: E11.9 Type 2 diabetes mellitus without complications (principal); M81.0 Age-related osteoporosis without current pathological fracture; E78.5 Hyperlipidemia, unspecified; I10 Essential (primary) hypertension; R53.83 Other fatigue | CPT/HCPCS: 82043; 82570 ==

== ENCOUNTER 2024-06-15 11:59 | Emergency (ER) | payer BC, SELFPAY ==
[2024-06-15 12:30] VITALS: BP 135/74; PULSE 83; RESP 20; TEMP 36.9; O2SAT 92; BMI 24.5
--- NOTE | 2024-06-15 12:58 | ED_ITS ---
HPI - General Adult General Chief complaint: Unspecified Complaint, Adult Stated complaint: Trouble with oxygen tank low oxygen Time Seen by Provider: 06/15/24 12:39 Source: patient Mode of arrival: ambulatory Limitations: no limitations History of Present Illness HPI narrative: 73-year-old female, history of COPD that is oxygen dependent presenting today with concerns about her oxygen tank not working properly. Patient states that it frequently shut down on its own. She is going on a trip soon and she wants to make sure that her oxygen tank is functioning properly. Patient states that she feels fine, denies any recent illness. Denies increased oxygen demand or new shortness of breath. Related Data Home Medications ?Medication ?Instructions ?Recorded ?Confirmed aspirin 81 mg tablet,delayed 81 mg PO QDAY 03/26/24 03/26/24 release (Adult Aspirin Regimen) Previous Rx's ?Medication ?Instructions ?Recorded acetaminophen 325 mg tablet 650 mg (2 x 325 mg) PO Q6H PRN 06/21/22 pain #100 tabs albuterol sulfate 90 mcg/actuation 2 inh inhalation Q4H PRN shortness 03/26/24 aerosol inhaler of breath or wheezing #8.5 grams alendronate 70 mg tablet 70 mg PO QWEEK #14 tabs 03/26/24 buspirone 10 mg tablet 10 mg PO BID #180 tabs 03/26/24 diltiazem HCl 240 mg 240 mg PO DAILY #90 caps 03/26/24 capsule,extended release 24 hr guaifenesin 600 mg tablet, 600 mg PO BID #180 tabs 03/26/24 extended release 12 hr (Mucinex) lorazepam 0.5 mg tablet 0.25 mg (1/2 x 0.5 mg) PO BID PRN 03/26/24 anxiety #20 tabs metoprolol succinate 100 mg 100 mg PO DAILY #90 tabs 03/26/24 tablet,extended release 24 hr omeprazole 20 mg tablet,delayed 20 mg PO QDAY #90 tabs 03/26/24 release sitagliptin phosphate 100 mg tablet 100 mg PO DAILY #90 tabs 03/26/24 trazodone 50 mg tablet 50 mg PO HS PRN insomnia #90 tabs 03/26/24 venlafaxine 150 mg 150 mg PO DAILY #90 caps 03/26/24 capsule,extended release 24 hr budesonide-formoterol HFA 160 2 puff inhalation BID #10.2 grams 04/01/24 mcg-4.5 mcg/actuation aerosol inhaler diaper,brief,adult,disposable #32 ea 06/04/24 (Fitted Briefs Large) Allergies Allergy/AdvReac Type Severity Reaction Status Date / Time acetylcysteine Allergy Unknown respiratory Verified 03/26/24 13:59 distress amlodipine Allergy Unknown Anaphylaxis Verified 03/26/24 13:59 ipratropium Allergy Unknown facial Verified 03/26/24 13:59 swelling tiotropium Allergy Unknown Verified 03/26/24 13:59 metformin AdvReac Severe Diarrhea Verified 03/26/24 13:59 [id number] Reductase AdvReac Mild Joint Pain Verified 03/26/24 14:59 Inhibitor PFSH [facility] Medical History (Updated 06/15/24 @ 13:01 by Yelitza Sen MD) Type 2 diabetes mellitus (~2021) ?E11.9 - Type 2 diabetes mellitus without complications (ICD-10) Albuminuria (~05/08/22) ?R80.9 - Proteinuria, unspecified (ICD-10) Hypoxia ?R09.02 - Hypoxemia (ICD-10) Physician orders for life-sustaining treatment (POLST) form indicates patient wish for [id number] status (05/09/18) ?Z66 - Do not resuscitate (ICD-10) Sinus tachycardia ?R00.0 - Tachycardia, unspecified (ICD-10) Polycythemia vera ?D45 - Polycythemia vera (ICD-10) Obstructive sleep apnea syndrome ?G47.33 - Obstructive sleep apnea (adult) (pediatric) (ICD-10) Leukocytosis ?D72.829 - Elevated white blood cell count, unspecified (ICD-10) Lesion of vertebra ?M89.9 - Disorder of bone, unspecified (ICD-10) Hypertension ?I10 - Essential (primary) hypertension (ICD-10) Dyslipidemia ?E78.5 - Hyperlipidemia, unspecified (ICD-10) Depression ?F32.A - Depression, unspecified (ICD-10) Counseling regarding advanced directives (05/09/18) ?Z71.89 - Other specified counseling (ICD-10) Chronic respiratory failure with hypoxia, on home oxygen therapy ?J96.11 - Chronic respiratory failure with hypoxia (ICD-10) ?Z99.81 - Dependence on supplemental oxygen (ICD-10) Anxiety ?F41.9 - Anxiety disorder, unspecified (ICD-10) Surgical History (Updated 09/19/23 @ 07:13 by Beatrice Cohen MD) S/P ORIF (open reduction internal fixation) fracture (06/19/22) ?Z98.890 - Other specified postprocedural states (ICD-10) ?Z87.81 - Personal history of (healed) traumatic fracture (ICD-10) H/O left wrist surgery (03/06/22) ?Z98.890 - Other specified postprocedural states (ICD-10) History of tubal ligation ?Z98.51 - Tubal ligation status (ICD-10) History of melanoma excision (2003) ?Z98.890 - Other specified postprocedural states (ICD-10) ?Z85.820 - Personal history of malignant melanoma of skin (ICD-10) History of decompression of ulnar nerve (03/13/07) ?Z98.890 - Other specified postprocedural states (ICD-10) Family History Mother Coronary artery disease Paternal Grandmother Coronary artery disease Paternal Grandfather Stroke Other High blood pressure Social History (Updated 03/26/24 @ 14:56 by Zena Mcgarry ~ CTA) Narrative: , retired nurse aid, lives [facility], 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 Does not drink alcohol Does not exercise Ex-smoker- quit 2013, 60 pack years What is your current living situation?: I presently have a place to live Problems where you live: no known problems In the past 12 months, utilities in danger of being shut off: no In past 12 months, lack of transportation kept you from medical appts, meetings, work, or getting things needed for daily living: no In the past 12 mos, have been you worried that your food would run out before you had money to buy more?: never true In the past 12 mos, the food you bought just didn't last and you didn't have money to buy more?: never true Highest level of school completed/degree received: GED or equivalent Smoking Status: Former smoker Second hand tobacco smoke exposure: No How often do you have a drink containing alcohol: never AUDIT-C Alcohol total score: 0 Non-prescribed substance use: denies use Caffeine: Yes Are you now , , , , never or living with a partner: Social isolation score (0-1 are the most socially isolated patients): 0 How often does anyone, including family, friends and others, physically hurt you : never How often does anyone, including family, friends and others, insult or talk down to you: never How often does anyone, including family, friends and others, threaten you with harm: never How often does anyone, including family, friends and others, scream or curse at you: never Little interest or pleasure in doing things: more than half the days Feeling down, depressed, or hopeless: not at all service: No Exam Const: Vital Signs, click to edit/add: Vital Signs - 24 hr 06/15/24 12:30 Temperature 98.4 F Pulse Rate [Pulse Oximeter] 83 Respiratory Rate 20 Blood Pressure [Ri ght Upper Arm] 135/74 Pulse Oximetry 92 Oxygen Delivery Me thod Nasal Cannula Oxygen Flow Rate 2 Course Vital Signs Vital signs: Initial Vital Signs Temperature 98.4 F 06/15/24 12:30 Temperature Source Temporal Artery Scan 06/15/24 12:30 Pulse Rate 83 06/15/24 12:30 Respiratory Rate 20 06/15/24 12:30 Blood Pressure 135/74 06/15/24 12:30 Blood Pressure Mean 94 06/15/24 12:30 Blood Pressure Position Sitting 06/15/24 12:30 Pulse Oximetry 92 06/15/24 12:30 Oxygen Delivery Method Nasal Cannula 06/15/24 12:30 Oxygen Flow Rate 2 06/15/24 12:30 Vital Signs Temperature 98.4 F 06/15/24 12:30 Pulse Rate 83 06/15/24 12:30 Respiratory Rate 20 06/15/24 12:30 Blood Pressure 135/74 06/15/24 12:30 Pulse Oximetry 92 06/15/24 12:30 Oxygen Delivery Method Nasal Cannula 06/15/24 12:30 Oxygen Flow Rate 2 06/15/24 12:30 Temperature 98.4 F 06/15/24 12:30 Pulse Rate 83 06/15/24 12:30 Respiratory Rate 20 06/15/24 12:30 Blood Pressure 135/74 06/15/24 12:30 Pulse Oximetry 92 06/15/24 12:30 Oxygen Delivery Method Nasal Cannula 06/15/24 12:30 Oxygen Flow Rate 2 06/15/24 12:30 Medical Decision Making MDM Narrative Medical decision making narrative: 73-year-old female requesting assistance getting her oxygen tank looked at. Patient given information for reliable medical. Of note, she does have a backup take that is not portable. Discharge Plan Discharge Clinical Impression: Oxygen dependent Patient Disposition: Home, Self-Care Condition: Stable Additional Instructions: Recommend you call [facility] at [phone] to have them look at your tank. Prescriptions: No Action aspirin [Adult Aspirin Regimen] 81 mg tablet,delayed release (DR/EC) 81 mg PO QDAY trazodone 50 mg tablet 50 mg PO HS PRN (Reason: insomnia) Qty: 90 3RF sitagliptin phosphate 100 mg tablet 100 mg PO DAILY Qty: 90 3RF metoprolol succinate 100 mg tablet extended release 24 hr 100 mg PO DAILY Qty: 90 3RF guaifenesin [Mucinex] 600 mg tablet extended release 12hr 600 mg PO BID Qty: 180 4RF diltiazem HCl 240 mg capsule,extended release 24hr 240 mg PO DAILY Qty: 90 3RF buspirone 10 mg tablet 10 mg PO BID Qty: 180 4RF albuterol sulfate 90 mcg/actuation HFA aerosol inhaler 2 inh inhalation Q4H PRN (Reason: shortness of breath or wheezing) Qty: 8.5 12RF venlafaxine 150 mg capsule,extended release 24hr 150 mg PO DAILY Qty: 90 4RF omeprazole 20 mg tablet,delayed release (DR/EC) 20 mg PO QDAY Qty: 90 3RF alendronate 70 mg tablet 70 mg PO QWEEK Qty: 14 3RF lorazepam 0.5 mg tablet 0.25 mg PO BID PRN (Reason: anxiety) Qty: 20 0RF Rx Instructions: Please take half a tab BID PRN as needed for severe anxiety ONLY. acetaminophen 325 mg Tablet 650 mg PO Q6H PRN (Reason: pain) Qty: 100 0RF budesonide-formoterol 160-4.5 mcg/actuation HFA aerosol inhaler 2 puff inhalation BID Qty: 10.2 12RF (DME) Fitted Briefs Large Misc See Rx Instructions .Route Qty: 32 8RF Rx Instructions: As directed Follow Up/Referrals: Beatrice Cohen MD [Primary Care Provider] - Stand Alone Forms: [employer] Info Instructions
== END 2024-06-15 13:08 | disposition home or self-care (01) ==
LOC: ED 13:02
PROVIDERS: Emergency Provider Family Medicine; PCP Family Medicine
DX: Z99.81 Dependence on supplemental oxygen (principal)
CPT/HCPCS: 99281; 99282; 99283